=== PATIENT | female | born 1965 | race Caucasian/White ===

== ENCOUNTER 2016-09-21 20:55 | Emergency (ER) | payer BC ==
[~2016-09-21] VITALS: Ht 170.2 cm; Wt 68.0 kg
[~2016-09-21 20:55] MED LIST: ALPR.25T PO; ALPR0.5T7 PO; FAMO20TA13 PO; FEXO30TA17 PO; ONDA8TAB13 PO
--- OUTSIDE RECORDS SUMMARY | 2016-09-21 21:02 | XMS REPORT | Continuity of Care Document ---
Author Author [facility] Organization [facility] Address Unknown Phone Unavailable Care Team Providers Care Desktop Publishing Specialist Name Role Phone GREG KIM DO PCP Insurance Providers Payer Name Policy Number Subscriber Name Relationship [facility] [id number] Evelyn Peters 17 Self / Same As Patient Advance Directives Directive Response Recorded Date/Time Advance Directives No 07/10/15 5:15pm Health Care Power of Energy Audit Advisor No 07/10/15 5:15pm Organ Donor No 07/10/15 5:15pm Chief Complaint and Reason for Visit Chief Complaint General Problems/Pain Reason for Visit Urinary tract infection Pharyngitis Problems Active Problems Medical Problem Onset Date Status Chest pain Unknown Acute Pharyngitis Unknown Acute Urinary tract infection Unknown Acute Medications Current Home Medications Medication Dose Units Route Directions Days/Qty Instructions Start Date Fexofenadine Hcl 30 Mg 1 Each Oral Daily 01/11/10 Famotidine 20 Mg 1 Tab Oral Daily 30 01/11/10 Ondansetron 8 Mg 90 05/08/16 Alprazolam 0.5 Mg 112 05/08/16 Past Home Medications Medication Directions Ordered Status Alprazolam 0.25 Mg Tablet, 1 Tab Oral Bedtime 01/11/10 Discontinued Social History Social History Problem Response Recorded Date/Time Alcohol Use Denies Use 07/10/2015 5:42pm Recreational Drug Use No 07/10/2015 5:42pm Recent Foreign Travel No 05/08/2016 2:50pm Recent Infectious Disease Exposure No 05/08/2016 2:50pm Recent Hopitalizations No 05/08/2016 2:53pm Hospital Discharge Instructions No hospital discharge instructions. Plan of Care Discharge Date 05/08/16 5:07pm Disposition 01 HOME, SELF-CARE Condition at Discharge Improved Instructions/Education Provided Urinary Tract Infection in Women (ED) Prescriptions See Medication Section Referrals GREG KIM DO - Primary Care Physician Additional Instructions/Education Drink plenty of clear liquids. Cranberry juice may be used to augment treatment of urinary tract infection. Follow-up with Dr. Kim's office in 48 hours to review throat and urine cultures. Return to care if symptoms worsen. All discharge instructions reviewed with patient and/or family. Voiced understanding. Functional Status No functional status results. Allergies, Adverse Reactions, Alerts Allergen Type Severity Reaction Status Last Updated Penicillins ([id number]) Allergy Active 01/11/10 Immunizations No immunization records. Vital Signs Acute Vital Signs Vital Response Date/Time Temperature (Fahrenheit) 98.1 degrees F (97.6 - 99.5) 05/08/2016 2:50pm Temperature (Calculated Celsius) 36.58354 degrees C (36.4 - 37.5) 05/08/2016 2:50pm Temperature Source Tympanic 05/08/2016 2:50pm Pulse Rate (adult) 99 bpm (60 - 90) 05/08/2016 2:50pm Respiratory Rate 18 bpm (12 - 24) 05/08/2016 2:50pm O2 Sat by Pulse Oximetry 98 % (88 - 100) 05/08/2016 2:50pm Blood Pressure 123/92 mm Hg 05/08/2016 2:50pm Blood Pressure Mean 102 mm Hg 05/08/2016 2:50pm Pain Numeric Pain Scale 7 05/08/2016 2:50pm Height (Feet) 5 feet 05/08/2016 2:50pm Height (Inches) 7 inches 05/08/2016 2:50pm Height (Calculated Centimeters) 170.995420 cm 05/08/2016 2:50pm Weight (Pounds) 135 pounds 05/08/2016 2:50pm Weight (Calculated Kilograms) 61.571179 kilograms 05/08/2016 2:50pm Capillary Refill Capillary Refill Less Than 3 Seconds 05/08/2016 2:50pm Height 5 ft 7 in Weight 135 lb Body Mass Index 21.1 kg/m^2 Results Laboratory Results Test Name Result Units Flags Reference Collection Date/Time Result Date/ Time Comments Urine Color YELLOW 05/08/2016 2:55pm 05/08/2016 3:26pm Urine Clarity CLEAR 05/08/2016 2:55pm 05/08/2016 3:26pm Urine pH 7 5-9 05/08/2016 2:55pm 05/08/2016 3:26pm Urine Specific [place] 1.005 * 1.016-1.022 05/08/2016 2:55pm 2015 3:26pm Urine Protein NEGATIVE NEGATIVE 05/08/2016 2:55pm 05/08/2016 3:26pm Urine Glucose (UA) NEGATIVE NEGATIVE 05/08/2016 2:55pm 05/08/2016 3: 26pm Urine RBC (Auto) 4+ * NEGATIVE 05/08/2016 2:55pm 05/08/2016 3:26pm Urine Ketones NEGATIVE NEGATIVE 05/08/2016 2:55pm 05/08/2016 3:26pm Urine Nitrite NEGATIVE NEGATIVE 05/08/2016 2:55pm 05/08/2016 3:26pm Urine Bilirubin NEGATIVE NEGATIVE 05/08/2016 2:55pm 05/08/2016 3: 26pm Urine Urobilinogen NORMAL MG/DL NORMAL 05/08/2016 2:55pm 05/08/2016 3: 26pm Urine Leukocyte Esterase 3+ * NEGATIVE 05/08/2016 2:55pm 05/08/2016 3: 26pm Urine RBC 2-5 /HPF * 05/08/2016 2:55pm 05/08/2016 3:26pm Urine WBC 10-25 /HPF * 05/08/2016 2:55pm 05/08/2016 3:26pm Urine Bacteria TRACE /HPF 05/08/2016 2:55pm 05/08/2016 3:26pm Urine Squamous Epithelial Cells 2-5 /HPF 05/08/2016 2:55pm 2015 3:26pm Urine Crystals NONE /LPF 05/08/2016 2:55pm 05/08/2016 3:26pm Urine Casts NONE /LPF 05/08/2016 2:55pm 05/08/2016 3:26pm Urine Mucus NEGATIVE /LPF 05/08/2016 2:55pm 05/08/2016 3:26pm Urine Culture Indicated YES 05/08/2016 2:55pm 05/08/2016 3:26pm Group A Streptococcus Screen NEGATIVE NEGATIVE 05/08/2016 3:25pm 12/2015 3:46pm Procedures No known history of procedures. Encounters Encounter Location Arrival/Admit Date Discharge/Depart Date Attending Provider Departed Emergency Room [facility] 05/08/16 2:43pm 05/08 5:07pm QUAN TORRES MD Recent Diagnosis
[2016-09-21] MEDS ORDERED: KETOROLAC 30 MG/ML VIAL IVP STA (22:18)
[2016-09-21] MEDS ORDERED: NS IV 1000 ML 1,000 ML IV ONE (22:18)
[2016-09-21 22:31] LABS: BASOPHILS % (AUTO) 0 % (0-10); EOSINOPHILS % (AUTO) 0 % (0-10); LYMPHOCYTES # (AUTO) 0.4 X 10^3 (1.0-4.0); LYMPHOCYTES % (AUTO) 9 % (12-44); MEAN CORPUSCULAR HEMOGLOBIN 31 PG (25-34); MEAN CORPUSCULAR HGB CONC 35 G/DL (32-36); MEAN CORPUSCULAR VOLUME 89 FL (80-99); MEAN PLATELET VOLUME 9.3 FL (7.4-10.4); MONOCYTES # (AUTO) 0.5 X 10^3 (0.0-1.0); MONOCYTES % (AUTO) 10 % (0-12); NEUTROPHILS # (AUTO) 3.7 X 10^3 (1.8-7.8); NEUTROPHILS % (AUTO) 80 % (42-75); PLATELET COUNT 266 10^3/uL (130-400); RED BLOOD COUNT 4.22 10^6/uL (4.35-5.85); RED CELL DISTRIBUTION WIDTH 13.3 % (10.0-14.5); WHITE BLOOD COUNT 4.7 10^3/uL (4.3-11.0)
[2016-09-21] MEDS ORDERED: PROMETHAZINE INJ 25 MG/ML (PHENERGAN) AMP IVP STA (22:31)
[2016-09-21 23:06] LABS: ALBUMIN 4.2 G/DL (3.2-4.5); BILIRUBIN,TOTAL 0.4 MG/DL (0.1-1.0); CALCIUM 9.2 MG/DL (8.5-10.1); CREATININE SERUM 1.39 MG/DL (0.60-1.30); POTASSIUM 3.6 MMOL/L (3.6-5.0); TOTAL PROTEIN 7.4 G/DL (6.4-8.2)
--- NOTE | 2016-09-21 23:19 | ED Cough/URI ---
General Chief Complaint: Cough/Cold/Flu Symptoms Stated Complaint: FLU SYSTEMS NAUSEA DIZZY GEN PAIN Nursing Triage Note: c/o chills/bodyaches/malaise. Onset yestday. Hx of Lyme's Disease. States she does not tolerate Tylenol or ibuprofen. History of Present Illness Time seen by provider: 22:00 Initial Comments Evaluation for cough, congestion, myalgias. She has long-standing history of Lyme disease, with chronic arthralgias. Timing/Duration: yesterday Severity/Quality: moderate, dry cough Prior Episodes/Possible Cause: frequent episodes Modifying Factors: Improves With Coughing, Improves With Rest Associated Symptoms: cough, facial pain, headache, muscle aches Allergies and Home Medications Allergies Coded Allergies: Penicillins (Unverified Allergy, Unknown, 05/22/16) Home Medications Alprazolam 0.5 Mg Tablet #112 (Reported) Famotidine 20 Mg Tablet #30 1 TAB PO DAILY (Reported) Fexofenadine Hcl 30 Mg Tablet 1 EACH PO DAILY (Reported) Ketorolac Tromethamine 10 Mg Tablet #6 10 MG PO Q8H Prescribed by: ALEX BRYANT on 09/21/16 2324 Ondansetron 8 Mg Tab.rapdis #90 (Reported) Constitutional: no symptoms reported see HPI EENTM: no symptoms reported see HPI Respiratory: see HPI cough Cardiovascular: no symptoms reported see HPI Gastrointestinal: see HPI nausea (took Zofran at home.) Genitourinary: no symptoms reported see HPI Musculoskeletal: no symptoms reported see HPI Skin: see HPI Psychiatric/Neurological: No Symptoms Reported See HPI Hematologic/Lymphatic: No Symptoms Reported See HPI Immunological/Allergic: no symptoms reported see HPI All Other Systems Reviewed Negative Unless Noted: Yes Past Ndczblc-Idyxuz-Dchbue Hx Patient Social History Alcohol Use: Denies Use Recreational Drug Use: No Smoking Status: Never a Smoker Recent Foreign Travel: No Contact w/Someone Who Travel: No Recent Infectious Disease Expo: No Recent Hopitalizations: No Surgeries HX Surgeries: Yes Surgeries: Abdominal, Breast, Hysterectomy, Tubal Ligation Respiratory Hx Respiratory Disorders: Yes (ALLERGIES) Respiratory Disorders: Sleep Apnea Cardiovascular Hx Cardiac Disorders: No Neurological Hx Neurological Disorders: Yes (LYME DZ) 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 System : No Hx 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 Disorders: No Genitourinary Hx Genitourinary Disorders: Yes (chronic hematuria) Genitourinary Disorders: Renal Failure, UTI-Chronic Gastrointestinal Hx Gastrointestinal Disorders: Yes (ULCERS IN THE PAST) Musculoskeletal Hx Musculoskeletal Disorders: Yes Musculoskeletal Disorders: Fibromyalgia Endocrine Hx Endocrine Disorders: No HEENT HX ENT Disorders: No Cancer Hx Cancer: No Psychosocial Hx Psychiatric Problems: No Blood Transfusions Hx Blood Disorders: Yes (chronic Lyme's disease) Reviewed Nursing Assessment Reviewed/Agree w Nursing PMH: Yes Family Medical History Significant Family History: No Pertinent Family Hx Physical Exam Vital Signs Vital Sign - Last 12Hours 09/21/16 21:26 Temp 100.4 Pulse 110 Resp 20 B/P 120/76 Pulse Ox 98 O2 Delivery Room Air Capillary Refill : Less Than 3 Seconds General Appearance: WD/WN no apparent distress Eyes: Bilateral Eye EOMI, Bilateral Eye Normal Inspection, Bilateral Eye PERRL HEENT: PERRL/EOMI normal ENT inspection TMs normal pharynx normal Neck: full range of motion supple normal inspection Respiratory: chest non-tender lungs clear normal breath sounds Cardiovascular: normal peripheral pulses regular rate, rhythm no murmur Gastrointestinal: normal bowel sounds non tender softNo distended, No guarding , No rebound Extremities: normal range of motion normal inspection no pedal edema no calf tenderness normal capillary refill Neurologic/Psychiatric: no motor/sensory deficits alert normal mood/affect oriented x 3 Skin: normal color warm/dry Lymphatic: no adenopathy Progress/Results/Core Measures Results/Orders Lab Results Laboratory Tests Test 09/21/16 10:25 09/21/16 21:20 Range/Units Alanine Aminotransferase (ALT/SGPT) 16 0-55 U/L Albumin 4.2 3.2-4.5 G/DL Alkaline Phosphatase 77 40-136 U/L Anion Gap 11 5-14 MMOL/L Aspartate Amino Transf (AST/SGOT) 21 5-34 U/L BUN/Creatinine Ratio 6 Basophils # (Auto) 0.0 0.0-0.1 10^3/uL Basophils (%) (Auto) 0 0-10 % Blood Urea Nitrogen 8 7-18 MG/DL Calcium Level 9.2 8.5-10.1 MG/DL Carbon Dioxide Level 21 21-32 MMOL/L Chloride Level 98 98-107 MMOL/L Creatinine 1.39 H 0.60-1.30 MG/DL Eosinophils # (Auto) 0.0 0.0-0.3 10^3/uL Eosinophils (%) (Auto) 0 0-10 % Estimat Glomerular Filtration Rate 40 Glucose Level 116 H 70-105 MG/DL Hematocrit 38 35-52 % Hemoglobin 13.0 11.5-16.0 G/DL Lymphocytes # (Auto) 0.4 L 1.0-4.0 X 10^3 Lymphocytes (%) (Auto) 9 L 12-44 % Mean Corpuscular Hemoglobin 31 25-34 PG Mean Corpuscular Hemoglobin Concent 35 32-36 G/DL Mean Corpuscular Volume 89 80-99 FL Mean Platelet Volume 9.3 7.4-10.4 FL Monocytes # (Auto) 0.5 0.0-1.0 X 10^3 Monocytes (%) (Auto) 10 0-12 % Neutrophils # (Auto) 3.7 1.8-7.8 X 10^3 Neutrophils (%) (Auto) 80 H 42-75 % Platelet Count 266 130-400 10^3/uL Potassium Level 3.6 3.6-5.0 MMOL/L Red Blood Count 4.22 L 4.35-5.85 10^6/uL Red Cell Distribution Width 13.3 10.0-14.5 % Sodium Level 130 L 135-145 MMOL/L Total Bilirubin 0.4 0.1-1.0 MG/DL Total Protein 7.4 6.4-8.2 G/DL White Blood Count 4.7 4.3-11.0 10^3/uL Group A Streptococcus Screen NEGATIVE NEGATIVE Micro Results Microbiology 09/21/16 Influenza Types A,B Antigen (DAREN) - Final, Complete My Orders Orders-ALEX BRYANT Saline Lock/Iv-Start (09/21/16 22:18) Ns Iv 1000 Ml (Sodium Chloride 0.9%) (09/21/16 22:18) Cbc With Automated Diff (09/21/16 22:18) Comprehensive Metabolic Panel (09/21/16 22:18) Ketorolac Injection (Toradol Injection) (09/21/16 22:18) Promethazine Injection (Phenergan Injec (09/21/16 22:31) Medications Given in ED Current Medications Medications Dose Ordered Sig/Nickie Route Start Time Stop Time Status Last Admin Dose Admin Sodium Chloride 1,000 ml @ 0 mls/hr Q0M ONCE IV 09/21/16 22:18 09/21/16 22:21 DC 09/21/16 22:33 0 MLS/HR Vital Signs/I&O Vital Sign - Last 12Hours 09/21/16 09/21/16 21:26 22:32 Temp 100.4 100.4 Pulse 110 Resp 20 B/P 120/76 Pulse Ox 98 O2 Delivery Room Air Blood Pressure Mean: 91 Progress Note : Time: 22:00 Progress Note Initial evaluation completed, influenza A and B negative, strep A negative. 2215 recommended additional labs, CBC and CMP. Normal saline 1 L IV and Toradol 30 mg IV. 2230 patient reporting some nausea. Phenergan 12.5 mg IV. 2315 patient reports improvement in symptoms. 400 mls left in her IV to infuse. Temperature 99.0. Departure Impression Impression: Primary Impression: Viral upper respiratory infection Additional Impression: Nausea Disposition: HOME, SELF-CARE Condition: Stable Departure-Patient Inst. Decision time for Depature: 23:00 Referrals: GREG PATRICIA DO (PCP/Family) Primary Care Physician Patient Instructions: Cough, Adult (DC), Viral Upper Respiratory Infection, Adult (DC) Add. Discharge Instructions: All discharge instructions reviewed with patient and/or family. Voiced understanding. Return to emergency room for fevers, difficulty breathing, vomiting or change in symptoms. Increase fluid intake. Scripts Ketorolac Tromethamine 10 Mg [id number] Mg PO Q8H #6 TAB Ref 0 Prov:ALEX BRYANT 09/21/16 ALEX BRYANT Sep 21, 2016 23:19
[2016-09-21] MEDS ORDERED: KETO10TA PO (23:24)
[2016-09-21 23:54] VITALS: BP 118/72
== END 2016-09-21 23:54 | disposition home or self-care (01) ==
LOC: EDUNIT# 20:55 → ER 20:59
DX: J06.9 Acute upper respiratory infection, unspecified (principal); R11.0 Nausea; A69.20 Lyme disease, unspecified
CPT/HCPCS: 36415; 80053; 85025; 87430; 87804; 96361; 96374; 96375

== ENCOUNTER 2016-09-25 17:20 | Observation (INO) | payer BC ==
[~2016-09-25] VITALS: Ht 170.2 cm; Wt 66.3 kg
[~2016-09-25 17:20] MED LIST changes: +KETO10TA PO
[2016-09-25] MEDS ORDERED: HYDROcodone/APAP 5 MG/325 MG (LORTAB) TAB PO PRN (17:30)
[2016-09-25] MEDS ORDERED: ALPRAZolam 0.25 MG (XANAX) TAB PO PRN (17:30)
[2016-09-25] MEDS ORDERED: ENOXAPARIN 40 MG/0.4 ML (LOVENOX) SYR SC SCH (17:30)
[2016-09-25] MEDS ORDERED: fentaNYL INJECTION 100 MCG/2 ML AMP IVP PRN ×2 (17:30)
[2016-09-25] MEDS ORDERED: ONDANSETRON 4 MG/2 ML (SDV) Z0FRAN IVP PRN (17:30)
[2016-09-25] MEDS ORDERED: IBUPROFEN TABLET 200 MG TAB PO PRN (17:30)
[2016-09-25] MEDS ORDERED: ACETAMINOPHEN 500 MG TAB (TYLENOL) PO PRN (17:30)
[2016-09-25 17:50] VITALS: BP 108/71
[2016-09-25] MEDS ORDERED: NS IV 1000 ML 1,000 ML ONE (18:21)
--- OUTSIDE RECORDS SUMMARY | 2016-09-25 18:23 | XMS REPORT | Continuity of Care Document ---
Author Author [facility] Organization [facility] Address Unknown Phone Unavailable Care Team Providers Care Slubber Runner Name Role Phone GREG PATRICIA DO PCP Insurance Providers Payer Name Policy Number Subscriber Name Relationship [facility] [id number] GenaEvelyn Johns 17 Self / Same As Patient Advance Directives Directive Response Recorded Date/Time Advance Directives No 09/21/16 9:31pm Health Care Power of Consulting Utility Forester No 09/21/16 9:31pm Organ Donor No 09/21/16 9:31pm Resuscitation Status Full Code 09/21/16 9:31pm Chief Complaint and Reason for Visit Chief Complaint Cough/Cold/Flu Symptoms Reason for Visit [id number] Nausea Problems Active Problems Medical Problem Onset Date Status Chest pain Unknown Acute Nausea Unknown Acute Pharyngitis Unknown Acute Urinary tract infection Unknown Acute Viral upper respiratory infection Unknown Acute Medications Current Home Medications Medication Dose Units Route Directions Days/Qty Instructions Start Date Fexofenadine Hcl 30 Mg 1 Each Oral Daily 01/11/10 Famotidine 20 Mg 1 Tab Oral Daily 30 01/11/10 Ondansetron 8 Mg 90 05/08/16 Alprazolam 0.5 Mg 112 05/08/16 Ketorolac Tromethamine 10 Mg 10 Mg Oral Every 8HRS 6 09/21/16 Past Home Medications Medication Directions Ordered Status Alprazolam 0.25 Mg Tablet, 1 Tab Oral Bedtime 01/11/10 Discontinued Social History Social History Problem Response Recorded Date/Time Alcohol Use Denies Use 07/10/2015 5:42pm Recreational Drug Use No 07/10/2015 5:42pm Recent Foreign Travel No 09/21/2016 9:26pm Recent Infectious Disease Exposure No 09/21/2016 9:26pm Smoking Status Never a Smoker 09/21/2016 9:31pm Recent Hopitalizations No 09/21/2016 9:31pm Query Response Start Date Stop Date Smoking Status Never a Smoker Hospital Discharge Instructions No hospital discharge instructions. Plan of Care Discharge Date 09/21/16 11:54pm Disposition 01 HOME, SELF-CARE Condition at Discharge Stable Instructions/Education Provided Viral Upper Respiratory Infection, Adult (DC) Cough, Adult (DC) Prescriptions See Medication Section Referrals GREG PATRICIA DO - Primary Care Physician Additional Instructions/Education All discharge instructions reviewed with patient and/or family. Voiced understanding. Return to emergency room for fevers, difficulty breathing, vomiting or change in symptoms. Increase fluid intake. Functional Status No functional status results. Allergies, Adverse Reactions, Alerts Allergen Type Severity Reaction Status Last Updated Penicillins ([id number]) Allergy Unknown Active 05/22/16 Immunizations No immunization records. Vital Signs Acute Vital Signs Vital Response Date/Time Temperature (Fahrenheit) 100.4 degrees F (97.6 - 99.5) 09/21/2016 10:32pm Temperature (Calculated Celsius) 38.99745 degrees C (36.4 - 37.5) 09/21/2016 10:32pm Temperature Source Temporal 09/21/2016 10:32pm Pulse Rate (adult) 110 bpm (60 - 90) 09/21/2016 9:26pm Respiratory Rate 20 bpm (12 - 24) 09/21/2016 9:26pm O2 Sat by Pulse Oximetry 98 % (88 - 100) 09/21/2016 9:26pm Blood Pressure 120/76 mm Hg 09/21/2016 9:26pm Blood Pressure Mean 91 mm Hg 09/21/2016 9:26pm Pain Numeric Pain Scale 7 09/21/2016 10:32pm Height (Feet) 5 feet 09/21/2016 9:26pm Height (Inches) 7 inches 09/21/2016 9:26pm Height (Calculated Centimeters) 170.132899 cm 09/21/2016 9:26pm Weight (Pounds) 150 pounds 09/21/2016 9:26pm Weight (Calculated Kilograms) 68.717930 kilograms 09/21/2016 9:26pm Capillary Refill Capillary Refill Less Than 3 Seconds 09/21/2016 9:26pm Height 5 ft 7 in Weight 150 lb Body Mass Index 23.5 kg/m^2 Results Laboratory Results Test Name Result Units Flags Reference Collection Date/Time Result Date/ Time Comments White Blood Count 4.7 10^3/uL 4.3-11.0 09/21/2016 10:09/21/2016 10 :34pm Red Blood Count 4.22 10^6/uL L 4.35-5.85 09/21/2016 10:09/21/2016 10 :34pm Hemoglobin 13.0 G/DL 11.5-16.0 09/21/2016 10:09/21/2016 10:34pm Hematocrit 38 % 35-52 09/21/2016 10:09/21/2016 10:34pm Mean Corpuscular Volume 89 FL 80-99 09/21/2016 10:09/21/2016 10: 34pm Mean Corpuscular Hemoglobin 31 PG 25-34 09/21/2016 10:09/21/2016 10:34pm Mean Corpuscular Hemoglobin Concent 35 G/DL 32-36 09/21/2016 10: 10:34pm Red Cell Distribution Width 13.3 % 10.0-14.5 09/21/2016 10:2016 10:34pm Platelet Count 266 10^3/uL 130-400 09/21/2016 10:09/21/2016 10: 34pm Mean Platelet Volume 9.3 FL 7.4-10.4 09/21/2016 10:09/21/2016 10: 34pm Neutrophils (%) (Auto) 80 % H 42-75 09/21/2016 10:09/21/2016 10: 34pm Lymphocytes (%) (Auto) 9 % L 12-44 09/21/2016 10:09/21/2016 10:34pm Monocytes (%) (Auto) 10 % 0-12 09/21/2016 10:09/21/2016 10:34pm Eosinophils (%) (Auto) 0 % 0-10 09/21/2016 10:09/21/2016 10:34pm Basophils (%) (Auto) 0 % 0-10 09/21/2016 10:09/21/2016 10:34pm Neutrophils # (Auto) 3.7 X 10^3 1.8-7.8 09/21/2016 10:09/21/2016 10:34pm Lymphocytes # (Auto) 0.4 X 10^3 L 1.0-4.0 09/21/2016 10:09/21/2016 10:34pm Monocytes # (Auto) 0.5 X 10^3 0.0-1.0 09/21/2016 10:09/21/2016 10: 34pm Eosinophils # (Auto) 0.0 10^3/uL 0.0-0.3 09/21/2016 10:09/21/2016 10:34pm Basophils # (Auto) 0.0 10^3/uL 0.0-0.1 09/21/2016 10:09/21/2016 10 :34pm Sodium Level 130 MMOL/L L 135-145 09/21/2016 10:09/21/2016 11:07pm Potassium Level 3.6 MMOL/L 3.6-5.0 09/21/2016 10:09/21/2016 11: 07pm Chloride Level 98 MMOL/L 98-107 09/21/2016 10:09/21/2016 11:07pm Carbon Dioxide Level 21 MMOL/L 21-32 09/21/2016 10:09/21/2016 11: 07pm Anion Gap 11 MMOL/L 5-14 09/21/2016 10:09/21/2016 11:07pm Blood Urea Nitrogen 8 MG/DL 7-18 09/21/2016 10:09/21/2016 11:07pm Creatinine 1.39 MG/DL H 0.60-1.30 09/21/2016 10:09/21/2016 11:07pm BUN/Creatinine Ratio 6 09/21/2016 10:09/21/2016 11:07pm Estimat Glomerular Filtration Rate 40 09/21/2016 10:2016 11:07pm GFR INTERPRETIVE DATA UNITS FOR ESTIMATED GFR (eGFR): mL/min/1.73 M2 REFERENCE RANGE FOR ESTIMATED GFR (eGFR) eGFR NORMAL eGFR >60 MODERATELY DECREASED eGFR 30-59 SEVERLY DECREASED eGFR 15-29 KIDNEY FAILURE <15 (OR DIALYSIS) Glucose Level 116 MG/DL H 70-105 09/21/2016 10:09/21/2016 11:07pm Calcium Level 9.2 MG/DL 8.5-10.1 09/21/2016 10:09/21/2016 11:07pm Total Bilirubin 0.4 MG/DL 0.1-1.0 09/21/2016 10:09/21/2016 11: 07pm Alkaline Phosphatase 77 U/L 40-136 09/21/2016 10:09/21/2016 11: 07pm Aspartate Amino Transf (AST/SGOT) 21 U/L 5-34 09/21/2016 10:2016 11:07pm Alanine Aminotransferase (ALT/SGPT) 16 U/L 0-55 09/21/2016 10: 11:07pm Total Protein 7.4 G/DL 6.4-8.2 09/21/2016 10:09/21/2016 11:07pm Albumin 4.2 G/DL 3.2-4.5 09/21/2016 10:09/21/2016 11:07pm Group A Streptococcus Screen NEGATIVE NEGATIVE 09/21/2016 9:20pm 9:39pm Procedures No known history of procedures. Encounters Encounter Location Arrival/Admit Date Discharge/Depart Date Attending Provider Departed Emergency Room [facility] 09/21/16 8:59pm 09/21 11:54pm ALEX BRYANT Recent Diagnosis
[2016-09-25] MEDS ORDERED: CATHETER FLUSH 10 ML SYR IV PRN (18:30)
[2016-09-25] MEDS: NS IV 1000 ML 1,000 ML IV SCH (18:38)
[2016-09-25 19:28] LABS: BASOPHILS % (AUTO) 0 % (0-10); EOSINOPHILS % (AUTO) 0 % (0-10); LYMPHOCYTES # (AUTO) 1.9 X 10^3 (1.0-4.0); LYMPHOCYTES % (AUTO) 38 % (12-44); MEAN CORPUSCULAR HEMOGLOBIN 31 PG (25-34); MEAN CORPUSCULAR HGB CONC 35 G/DL (32-36); MEAN CORPUSCULAR VOLUME 90 FL (80-99); MEAN PLATELET VOLUME 9.6 FL (7.4-10.4); MONOCYTES # (AUTO) 0.7 X 10^3 (0.0-1.0); MONOCYTES % (AUTO) 13 % (0-12); NEUTROPHILS # (AUTO) 2.4 X 10^3 (1.8-7.8); NEUTROPHILS % (AUTO) 48 % (42-75); PLATELET COUNT 214 10^3/uL (130-400); RED BLOOD COUNT 3.87 10^6/uL (4.35-5.85); RED CELL DISTRIBUTION WIDTH 13.3 % (10.0-14.5)
--- NOTE | 2016-09-25 19:43 | Diagnostic Imaging Report ---
INDICATION: Cough. Fever. COMPARISON: 05/08/2016 FINDINGS: Frontal and lateral views of the chest demonstrate normal heart size and pulmonary vascularity. The lungs are clear. There are no signs of infiltrate, pleural effusions or pneumothoraces. The visualized osseous structures show no acute abnormalities. IMPRESSION: 1. No acute process. No signs of infiltrates, effusions or pneumothoraces. Dictated by: Dictated on workstation # [id number]
[2016-09-25 19:48] LABS: ALBUMIN 3.6 G/DL (3.2-4.5); BILIRUBIN,TOTAL 0.5 MG/DL (0.1-1.0); CALCIUM 8.3 MG/DL (8.5-10.1); CREATININE SERUM 1.29 MG/DL (0.60-1.30); POTASSIUM 3.2 MMOL/L (3.6-5.0); TOTAL PROTEIN 6.8 G/DL (6.4-8.2)
[2016-09-25 20:00] VITALS: BP 115/73
[2016-09-25] MEDS: OSELTAMIVIR 75 MG (TAMIFLU) BOX OF 10 PO SCH (20:12)
[2016-09-26] VITALS: BP 100/60
[2016-09-26 01:31] LABS: BILIRUBIN,URINE NEGATIVE (NEGATIVE); KETONES,URINE NEGATIVE (NEGATIVE); NITRITE,URINE NEGATIVE (NEGATIVE); PH,URINE 7 (5-9); PROTEIN,URINE NEGATIVE (NEGATIVE)
[2016-09-26 01:32] LABS: LEUKOCYTE ESTERASE ,URINE NEGATIVE (NEGATIVE); SQUAMOUS EPITHELIAL CELL,UR 0-2 /HPF; UROBILINOGEN,URINE NORMAL (NORMAL)
[2016-09-26] MEDS: NS IV 1000 ML 1,000 ML IV SCH (02:31)
[2016-09-26 04:00] VITALS: BP 96/62
[2016-09-26 05:13] LABS: BASOPHILS % (AUTO) 1 % (0-10); EOSINOPHILS # (AUTO) 0.1 10^3/uL (0.0-0.3); EOSINOPHILS % (AUTO) 1 % (0-10); LYMPHOCYTES # (AUTO) 1.7 X 10^3 (1.0-4.0); LYMPHOCYTES % (AUTO) 49 % (12-44); MEAN CORPUSCULAR HEMOGLOBIN 30 PG (25-34); MEAN CORPUSCULAR HGB CONC 34 G/DL (32-36); MEAN CORPUSCULAR VOLUME 91 FL (80-99); MEAN PLATELET VOLUME 9.5 FL (7.4-10.4); MONOCYTES # (AUTO) 0.4 X 10^3 (0.0-1.0); MONOCYTES % (AUTO) 12 % (0-12); NEUTROPHILS # (AUTO) 1.3 X 10^3 (1.8-7.8); NEUTROPHILS % (AUTO) 37 % (42-75); PLATELET COUNT 189 10^3/uL (130-400); RED BLOOD COUNT 3.68 10^6/uL (4.35-5.85); RED CELL DISTRIBUTION WIDTH 13.6 % (10.0-14.5); WHITE BLOOD COUNT 3.6 10^3/uL (4.3-11.0)
[2016-09-26 05:36] LABS: ALBUMIN 3.2 G/DL (3.2-4.5); BILIRUBIN,TOTAL 0.4 MG/DL (0.1-1.0); CREATININE SERUM 0.99 MG/DL (0.60-1.30); POTASSIUM 3.5 MMOL/L (3.6-5.0)
[2016-09-26] MEDS ORDERED: NS IV SCH ×2 (08:59)
[2016-09-26] MEDS ORDERED: KCL IV SCH ×2 (08:59)
[2016-09-26] MEDS ORDERED: KCL 20 MEQ TAB (K-DUR) PO NR (09:00)
[2016-09-26] MEDS ORDERED: ONDANSETRON 8 MG (ZOFRAN) ORAL DISSOLVE TAB PO PRN (09:00)
[2016-09-26] MEDS ORDERED: ALPRAZolam 0.5 MG (XANAX) TAB PO PRN (09:00)
[2016-09-26] MEDS: OSELTAMIVIR 75 MG (TAMIFLU) BOX OF 10 PO SCH (09:00)
[2016-09-26] MEDS ORDERED: FAMOTIDINE 20 MG (PEPCID) TABLET PO SCH (09:00)
[2016-09-26] MEDS ORDERED: LORATADINE (CLARITIN) 10 MG TAB PO SCH (09:06)
--- NOTE | 2016-09-26 11:31 | Short Stay Summary-Hospitalist ---
HPI History of Present Illness: HPI/Chief Complaint CC: Fever with lethargy HPI: This is a 51yoWF clinic pt of Dr. Kim's with hx of red cliff disease and chronic fatigue syndrome that presents after ER visit this past weekend given IVF and Diagnosed with viral infection since influenza was negative but continued to worsen with continued fever and dehydration. She was placed in observation for IVF and supportive care and workup for fever. Chart Review: Pt has low grade fever of 100 but WBC was 5 on admission, 3.6 today consistent with viral illness. Hgb 11.2, K+ 3.5 and normal Creat levels and liver enzymes. Will give K+ 20 meq in addition adding 10 meq in IV fluid bag. Reconciled all home meds and continued. 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 Patient Interview: Dr. Moran informs pt that she is negative for influenza A, and will no longer need to take Tamiflu, but was still dehydrated and had some form of viral illness. Pt states that she is unable to receive treatment for Lyme disease because she has severe hypersensitivities. Pt states that she is unable to take oral meds, wash her hair, wear lipstick, and use lotions. Pt states that these hypersensitivities appeared after her Hyst. Pt receives assistance from her sister. Pt states that she does not need any new meds. Pt requests Toradol IV for pain prior to DC. Scribed by Clarence Cantu under the direct supervision of Dr. Moran. Source: patient, RN/MD Exam Limitations: no limitations Date Seen 09/26/16 Attending Physician Daphney Moran DO PCP Rayray Kim DO Referring Physician Date of Admission Sep 25, 2016 at 18:19 Home Medications & Allergies Home Medications Reviewed patient Home Medication Reconciliation Form Allergies Coded Allergies: Penicillins (Verified Allergy, Unknown, 09/25/16) Past Xvgnxqh-Nckjov-Xvgtvh Hx Patient Social History Alcohol Use: Denies Use Recreational Drug Use: No Smoking Status: Never a Smoker Physical Abuse Screen: No Sexual Abuse: No Recent Foreign Travel: No Contact w/other who traveled: No Recent Hopitalizations: No Recent Infectious Disease Expo: No Seasonal Allergies Seasonal Allergies: Yes Surgeries HX Surgeries: Yes Surgeries: Abdominal, Breast, Hysterectomy, Tubal Ligation Respiratory Hx Respiratory Disorders: Yes (ALLERGIES) Cardiovascular Hx Cardiovascular Disorders: No Neurological Hx Neurological Disorders: Yes (LYME DZ) 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 System Hx 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 Disorders: No Sexually Transmitted Disease: No HIV/AIDS: No Female 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 Disorders: Denies Genitourinary Hx Genitourinary Disorders: Yes (chronic hematuria) Genitourinary Disorders: Renal Failure Gastrointestinal Hx Gastrointestinal Disorders: Yes (ULCERS IN THE PAST) Gastrointestinal Disorders: Gastroesophageal Reflux, Chronic Constipation, Irritable Bowel Musculoskeletal Hx Musculoskeletal Disorders: Yes Musculoskeletal Disorders: Arthritis, Fibromyalgia Endocrine Hx Endocrine Disorders: No HEENT HX ENT Disorders: No Cancer Hx Cancer: No Psychosocial Hx Psychiatric Problems: No Behavioral Health Disorders: Anxiety, Depression Blood Transfusions Hx Blood Disorders: Yes (chronic Lyme's disease) Family Medical History Significant Family History: No Pertinent Family Hx Family Hx: Alcoholism G8 BROTHER G8 SISTER Arthritis 19 MOTHER FH: Parkinson's disease 19 FATHER FH: breast cancer 19 FATHER FH: leukemia G8 BROTHER G8 SISTER Headache disorder G8 SISTER G8 SISTER LEUK Myocardial infarction 19 MOTHER PARKINSON 19 FATHER Parkinson's disease 19 FATHER TIA 19 FATHER TIAs No Family History of: AIDS Abdominal aortic aneurysm [place]'s disease Alzheimer's disease Asthma Cardiovascular disease Completed stroke Coronary thrombosis Diabetes mellitus Drug abuse Hypertension Kidney disease Respiratory disorder Seizure disorder Severe allergy Thyroid disease Tuberculosis Review of Systems Constitutional: see HPI dizziness fever malaise weakness EENTM: no symptoms reported Respiratory: cough Cardiovascular: no symptoms reported Gastrointestinal: no symptoms reported Genitourinary: decreased output Musculoskeletal: no symptoms reported Skin: no symptoms reported Psychiatric/Neurological: No Symptoms Reported All Other Systems Reviewed Negative Unless Noted: Yes Physical Exam Physical Exam Vital Signs Vital Sign - Last 12Hours 09/25/16 17:50 Temp 99.1 Pulse 87 Resp 18 B/P 108/71 Pulse Ox 98 O2 Delivery Room Air Capillary Refill : General Appearance: No Apparent Distress WD/WN Chronically ill Eyes: Bilateral Eye Normal Inspection, Bilateral Eye PERRL HEENT: PERRL/EOMI Normal ENT Inspection Pharynx Normal Neck: Full Range of Motion Normal Inspection Non Tender Supple Carotid Bruit Respiratory: Chest Non Tender Lungs Clear Normal Breath Sounds No Accessory Muscle Use No Respiratory Distress Cardiovascular: Regular Rate, Rhythm No Edema No Gallop No JVD No Murmur Normal Peripheral Pulses Gastrointestinal: Normal Bowel Sounds No Organomegaly No Pulsatile Mass Non Tender Soft Back: Normal Inspection No CVA Tenderness No Vertebral Tenderness Extremity: Normal Capillary Refill Normal Inspection Normal Range of Motion Non Tender No Calf Tenderness No Pedal Edema Neurologic/Psychiatric: Alert Oriented x3 No Motor/Sensory Deficits Normal Mood/Affect Skin: Normal Color Warm/Dry Lymphatic: No Adenopathy Results Results/Procedures Lab Laboratory Tests 09/25/16 19:17 09/26/16 05:03 Short Stay Diagnosis Discharge Diagnosis-Short Stay Admission Diagnosis Assessment: Viral illness - influenza negative Fever Hypokalemia Dehydration [place] disease Chronic fatigue syndrome Final Discharge Diagnosis Assessment: Viral illness - influenza negative Fever Hypokalemia Dehydration [place] disease Chronic fatigue syndrome Conclusion Plan Plan: K+ 20 meq in addition adding 10 meq in IV fluid bag Reconciled all home meds Plan for DC today Toradol IV for pain one dose prior to DC Clinical Quality Measures DVT/VTE Risk/Contraindication: Risk Factor Score Per Nursin RFS Level Per Nursing on Admit: 2=Moderate DAPHNEY MORAN DO Sep 26, 2016 11:31
--- NOTE | 2016-09-26 11:50 | Discharge Instructions ---
Discharge Instructions Discharge Medications New, Converted or Re-Newed RX: Other Continued Medications: Alprazolam (Alprazolam) 0.5 Mg Tablet 0.5 MG PO EVERY 4-6 HOURS PRN ANXIETY Famotidine (Pepcid) 20 Mg Tablet 20 MG PO DAILY TAB Fexofenadine Hcl (Kaitlynn) 30 Mg Tablet 30 MG PO DAILY Ondansetron (Ondansetron Odt) 8 Mg Tab.rapdis 8 MG PO Q8H PRN NAUSEA/VOMITING Patient Instructions Goal/Follow Up Appt: follow-up with Dr. Kim for chronic Lyme disease and chronic fatigue syndrome treatment Activity & Diet Discharge Diet: No Restrictions Activity as Tolerated: Yes KISHAN MENDOZA DO Sep 26, 2016 11:50
[2016-09-26 12:00] VITALS: BP 98/63
[2016-09-26] MEDS ORDERED: KETOROLAC 30 MG/ML VIAL IVP NR (13:00)
== END 2016-09-26 11:48 | disposition home or self-care (01) ==
LOC: 4TH 17:40 → UNDOADMOB 18:19 → UNDODISOB 09-26 14:25
PROVIDERS: ADMIT Internal Medicine; ATTEND Internal Medicine
DX: E86.0 Dehydration (principal); B34.9 Viral infection, unspecified; R50.9 Fever, unspecified; E87.6 Hypokalemia; A69.20 Lyme disease, unspecified; R53.82 Chronic fatigue, unspecified
CPT/HCPCS: 36415; 71020; 80053; 81000; 83605; 85025; 87040; 87804; 94760; 99211; G0378

== ENCOUNTER 2017-01-13 14:46 | Emergency (ER) | payer BC ==
[~2017-01-13] VITALS: Ht 170.2 cm; Wt 65.8 kg
[2017-01-13] MEDS ORDERED: ONDANSETRON 4 MG/2 ML (SDV) Z0FRAN IVP ONE (15:00)
[2017-01-13] MEDS ORDERED: KETOROLAC 30 MG/ML VIAL IVP ONE (15:00)
[2017-01-13] MEDS ORDERED: LORazepam INJ 2 MG/ML (ATIVAN) VIAL IVP ONE (15:00)
[2017-01-13] MEDS ORDERED: NS IV 1000 ML 1,000 ML IV SCH (15:00)
--- NOTE | 2017-01-13 15:01 | ED General ---
General Chief Complaint: General Problems/Pain Stated Complaint: HEAD/NECK PAIN Source of Information: Patient Exam Limitations: No Limitations History of Present Illness Time Seen by Provider: 14:59 Initial Comments To ER with severe head and neck pain for the past few days that she states is typical of a flareup of her Lyme disease and fibromyalgia. She states usually she has to come to the emergency room to get IV Zofran and IV Xanax but they have to be put in the bag of fluids because if you push them she'll have a "neurological reaction". She denies fevers or chills. She states that she has a "neurological reaction" to too many medications to list but she states that she can have saline, Zofran and Xanax. Timing/Duration: 1-2 Days Severity: Moderate Associated Systoms: Headaches, Nausea/Vomiting (nausea but no vomiting. ) Allergies and Home Medications Allergies Coded Allergies: Penicillins (Verified Allergy, Unknown, 09/25/16) Home Medications Alprazolam 0.5 Mg Tablet, 0.5 MG PO EVERY 4-6 HOURS PRN for ANXIETY, (Reported) Famotidine 20 Mg Tablet, 20 MG PO DAILY, (Reported) Fexofenadine Hcl 30 Mg Tablet, 30 MG PO DAILY, (Reported) Ondansetron 8 Mg Tab.rapdis, 8 MG PO Q8H PRN for NAUSEA/VOMITING, (Reported) Constitutional: see HPI EENTM: see HPI Respiratory: no symptoms reported Cardiovascular: no symptoms reported Genitourinary: no symptoms reported Musculoskeletal: no symptoms reported Skin: no symptoms reported Psychiatric/Neurological: See HPI Past Ixgtlov-Mdwgsg-Htmtmo Hx Patient Social History Recent Foreign Travel: No Contact w/Someone Who Travel: No Recent Hopitalizations: No Immunizations Up To Date PED Vaccines UTD: No Seasonal Allergies Seasonal Allergies: Yes Surgeries HX Surgeries: Yes Surgeries: Abdominal, Breast, Hysterectomy, Tubal Ligation Respiratory Hx Respiratory Disorders: Yes (ALLERGIES) Respiratory Disorders: Sleep Apnea Cardiovascular Hx Cardiac Disorders: No Neurological Hx Neurological Disorders: Yes (LYME DZ) 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 System Hx 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 Disorders: No Sexually Transmitted Disease: No HIV/AIDS: No Female 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 Disorders: Denies Genitourinary Hx Genitourinary Disorders: Yes (chronic hematuria) Genitourinary Disorders: Renal Failure Gastrointestinal Hx Gastrointestinal Disorders: Yes (ULCERS IN THE PAST) Gastrointestinal Disorders: Gastroesophageal Reflux, Chronic Constipation, Irritable Bowel Musculoskeletal Hx Musculoskeletal Disorders: Yes Musculoskeletal Disorders: Arthritis, Fibromyalgia Endocrine Hx Endocrine Disorders: No HEENT HX ENT Disorders: No Cancer Hx Cancer: No Psychosocial Hx Psychiatric Problems: No Behavioral Health Disorders: Anxiety, Depression Blood Transfusions Hx Blood Disorders: Yes (chronic Lyme's disease) Family Medical History Significant Family History: No Pertinent Family Hx Family Medial History: Alcoholism G8 BROTHER G8 SISTER Arthritis 19 MOTHER FH: Parkinson's disease 19 FATHER FH: breast cancer 19 FATHER FH: leukemia G8 BROTHER G8 SISTER Headache disorder G8 SISTER G8 SISTER LEUK Myocardial infarction 19 MOTHER PARKINSON 19 FATHER Parkinson's disease 19 FATHER TIA 19 FATHER TIAs No Family History of: AIDS Abdominal aortic aneurysm Jamal's disease Alzheimer's disease Asthma Cardiovascular disease Completed stroke Coronary thrombosis Diabetes mellitus Drug abuse Hypertension Kidney disease Respiratory disorder Seizure disorder Severe allergy Thyroid disease Tuberculosis Physical Exam Vital Signs Vital Sign - Last 12Hours 01/13/17 14:56 Temp 98.3 Pulse 98 Resp 20 B/P (MAP) 139/119 Pulse Ox 99 O2 Delivery Room Air Capillary Refill : General Appearance: No Apparent Distress, WD/WN, Other (patient wears her dark sunglasses into the room, breathes heavily and appears quite anxious.) Eyes: Bilateral Eye EOMI, Bilateral Eye Normal Inspection, Bilateral Eye PERRL HEENT: PERRL/EOMI, TMs Normal Neck: Full Range of Motion, Normal Inspection Respiratory: No Accessory Muscle Use, No Respiratory Distress Gastrointestinal: Normal Bowel Sounds, Non Tender, Soft Extremity: Normal Capillary Refill, Normal Inspection Neurologic/Psychiatric: Alert, Oriented x3, No Motor/Sensory Deficits Skin: Normal Color, Warm/Dry Progress/Results/Core Measures Results/Orders Lab Results Laboratory Tests Test 01/13/17 15:10 01/13/17 15:13 Range/Units White Blood Count 6.1 4.3-11.0 10^3/uL Red Blood Count 4.17 L 4.35-5.85 10^6/uL Hemoglobin 12.7 11.5-16.0 G/DL Hematocrit 38 35-52 % Mean Corpuscular Volume 91 80-99 FL Mean Corpuscular Hemoglobin 31 25-34 PG Mean Corpuscular Hemoglobin Concent 33 32-36 G/DL Red Cell Distribution Width 13.4 10.0-14.5 % Platelet Count 282 130-400 10^3/uL Mean Platelet Volume 9.3 7.4-10.4 FL Neutrophils (%) (Auto) 45 42-75 % Lymphocytes (%) (Auto) 39 12-44 % Monocytes (%) (Auto) 12 0-12 % Eosinophils (%) (Auto) 3 0-10 % Basophils (%) (Auto) 1 0-10 % Neutrophils # (Auto) 2.8 1.8-7.8 X 10^3 Lymphocytes # (Auto) 2.4 1.0-4.0 X 10^3 Monocytes # (Auto) 0.7 0.0-1.0 X 10^3 Eosinophils # (Auto) 0.2 0.0-0.3 10^3/uL Basophils # (Auto) 0.1 0.0-0.1 10^3/uL Sodium Level 134 L 135-145 MMOL/L Potassium Level 3.4 L 3.6-5.0 MMOL/L Chloride Level 99 98-107 MMOL/L Carbon Dioxide Level 25 21-32 MMOL/L Anion Gap 10 5-14 MMOL/L Blood Urea Nitrogen 7 7-18 MG/DL Creatinine 1.19 0.60-1.30 MG/DL Estimat Glomerular Filtration Rate 48 BUN/Creatinine Ratio 6 Glucose Level 95 70-105 MG/DL Calcium Level 9.4 8.5-10.1 MG/DL Total Bilirubin 0.3 0.1-1.0 MG/DL Aspartate Amino Transf (AST/SGOT) 20 5-34 U/L Alanine Aminotransferase (ALT/SGPT) 14 0-55 U/L Alkaline Phosphatase 65 40-136 U/L Total Protein 7.6 6.4-8.2 G/DL Albumin 4.3 3.2-4.5 G/DL Urine Color YELLOW Urine Clarity SLIGHTLY CLOUDY Urine pH 6 5-9 Urine Specific [place] 1.010 L 1.016-1.022 Urine Protein NEGATIVE NEGATIVE Urine Glucose (UA) NEGATIVE NEGATIVE Urine Ketones NEGATIVE NEGATIVE Urine Nitrite NEGATIVE NEGATIVE Urine Bilirubin NEGATIVE NEGATIVE Urine Urobilinogen NORMAL NORMAL MG/DL Urine Leukocyte Esterase 2+ H NEGATIVE Urine RBC (Auto) 3+ H NEGATIVE Urine RBC 0-2 /HPF Urine WBC RARE /HPF Urine Squamous Epithelial Cells 0-2 /HPF Urine Crystals NONE /LPF Urine Bacteria NEGATIVE /HPF Urine Casts NONE /LPF Urine Mucus NEGATIVE /LPF Urine Culture Indicated NO My Orders Orders - JACQUELINE COMER LEGAL SUPPORT SPECIALIST Cbc With Automated Diff (01/13/17 14:54) Comprehensive Metabolic Panel (01/13/17 14:54) Ua Culture If Indicated (01/13/17 14:54) Saline Lock/Iv-Start (01/13/17 14:54) Ns Iv 1000 Ml (Sodium Chloride 0.9%) (01/13/17 15:00) Ketorolac Injection (Toradol Injection) (01/13/17 15:00) Ondansetron Injection (Zofran Injectio (01/13/17 15:00) Lorazepam Injection (Ativan Injection) (01/13/17 15:00) Thyroid Stimulating Hormone (01/13/17 15:37) Free T4 (Free Thyroxine) (01/13/17 15:37) Medications Given in ED Current Medications Medications Dose Ordered Sig/Nickie Route Start Time Stop Time Status Last Admin Dose Admin Ketorolac Tromethamine 30 mg ONCE ONCE IVP 01/13/17 15:00 01/13/17 15:01 DC 01/13/17 15:21 30 MG Lorazepam 1 mg ONCE ONCE IVP 01/13/17 15:00 01/13/17 15:01 DC 01/13/17 15:27 1 MG Ondansetron HCl 4 mg ONCE ONCE IVP 01/13/17 15:00 01/13/17 15:01 DC 01/13/17 15:20 4 MG Vital Signs/I&O Vital Sign - Last 12Hours 01/13/17 14:56 Temp 98.3 Pulse 98 Resp 20 B/P (MAP) 139/119 Pulse Ox 99 O2 Delivery Room Air Departure Communication Progress Notes 1527-Pt states she is having a "reaction" to the toradol and zofran. She is breathing very fast and legs moving quickly. She states normally she has to have the bag of IV fluids first and then given the IV medications or else she will have a reaction to them. She also states she needs IV Xanax. I clarified with her that there is no such thing and she states she will take IV lorazepam but does not want first, she wants it placed in her bag of IV fluids. 1610-feels much better though still has some pain to the right side of her face. Her nausea is gone. She would like something different for pain. I offered her fentanyl but she declines because she may have a reaction to it she states. She agrees to go home with this level of pain and return for any worsening. Impression Impression: Primary Impression: Chronic pain Disposition: ADMITTED INPATIENT Condition: Stable Departure-Patient Inst. Decision time for Depature: 15:29 Referrals: GREG PATRICIA DO (PCP/Family) Primary Care Physician Patient Instructions: Chronic Pain (DC) Add. Discharge Instructions: 1. Return to ER for any concerns 2. See your doctor later this week All discharge instructions reviewed with patient and/or family. Voiced understanding. Copy Copies To 1: GREG PATRICIA PETER J APRN Jan 13, 2017 15:01
[2017-01-13 15:20] LABS: BASOPHILS # (AUTO) 0.1 10^3/uL (0.0-0.1); BASOPHILS % (AUTO) 1 % (0-10); EOSINOPHILS # (AUTO) 0.2 10^3/uL (0.0-0.3); EOSINOPHILS % (AUTO) 3 % (0-10); LYMPHOCYTES # (AUTO) 2.4 X 10^3 (1.0-4.0); LYMPHOCYTES % (AUTO) 39 % (12-44); MEAN CORPUSCULAR HEMOGLOBIN 31 PG (25-34); MEAN CORPUSCULAR HGB CONC 33 G/DL (32-36); MEAN CORPUSCULAR VOLUME 91 FL (80-99); MEAN PLATELET VOLUME 9.3 FL (7.4-10.4); MONOCYTES # (AUTO) 0.7 X 10^3 (0.0-1.0); MONOCYTES % (AUTO) 12 % (0-12); NEUTROPHILS # (AUTO) 2.8 X 10^3 (1.8-7.8); NEUTROPHILS % (AUTO) 45 % (42-75); PLATELET COUNT 282 10^3/uL (130-400); RED BLOOD COUNT 4.17 10^6/uL (4.35-5.85); RED CELL DISTRIBUTION WIDTH 13.4 % (10.0-14.5); WHITE BLOOD COUNT 6.1 10^3/uL (4.3-11.0)
[2017-01-13 15:24] LABS: BILIRUBIN,URINE NEGATIVE (NEGATIVE); KETONES,URINE NEGATIVE (NEGATIVE); LEUKOCYTE ESTERASE ,URINE 2+ (NEGATIVE); NITRITE,URINE NEGATIVE (NEGATIVE); PH,URINE 6 (5-9); PROTEIN,URINE NEGATIVE (NEGATIVE); UROBILINOGEN,URINE NORMAL (NORMAL)
[2017-01-13 15:37] LABS: SQUAMOUS EPITHELIAL CELL,UR 0-2 /HPF; WBC,URINE RARE /HPF
[2017-01-13 15:38] LABS: ALBUMIN 4.3 G/DL (3.2-4.5); BILIRUBIN,TOTAL 0.3 MG/DL (0.1-1.0); CALCIUM 9.4 MG/DL (8.5-10.1); CREATININE SERUM 1.19 MG/DL (0.60-1.30); POTASSIUM 3.4 MMOL/L (3.6-5.0); TOTAL PROTEIN 7.6 G/DL (6.4-8.2)
[2017-01-13 16:12] LABS: THYROID STIMULATING HORMONE 0.97 UIU/ML (0.35-4.94)
[2017-01-13 16:17] VITALS: BP 135/84
== END 2017-01-13 16:17 | disposition other institution (70) ==
LOC: EDUNIT# 14:46 → ER 14:49
DX: M54.2 Cervicalgia (principal); R51 Headache; G89.29 Other chronic pain
CPT/HCPCS: 36415; 80053; 81000; 84439; 84443; 85025

== ENCOUNTER 2017-04-14 12:09 | Outpatient (RCR) | payer BC ==
[2017-01-29 13:30] VITALS: BP 99/61
[2017-02-05] MEDS: LACTATED RINGERS 1,000 ML IV SCH (13:23)
[2017-02-05 13:26] VITALS: BP 101/65
[2017-02-05 14:25] VITALS: BP 101/65
[2017-02-19] MEDS: LACTATED RINGERS 1,000 ML IV SCH (13:25)
[2017-02-19 13:49] VITALS: BP 101/65
[2017-02-19 14:52] VITALS: BP 101/65
[2017-03-04 16:23] VITALS: BP 105/66
[2017-03-04 17:18] VITALS: BP 105/66
[2017-03-17] MEDS: LACTATED RINGERS 1,000 ML IV SCH (12:35)
[2017-03-17 14:50] VITALS: BP 105/79
[2017-04-01 12:45] VITALS: BP 102/81
[~2017-04-14] VITALS: Ht 170.2 cm; Wt 65.9 kg
[~2017-04-14 12:09] MED LIST changes: +FEXO180T84 PO; +KETOROLAC 30 MG/ML VIAL IV ONE; +KETOROLAC 30 MG/ML VIAL IV PRN; +KETOROLAC 30 MG/ML VIAL IVP ONE; +KETOROLAC 30 MG/ML VIAL ONE; +LACTATED RINGERS 1,000 ML IV ONE; +MAGNESIUM 1 GM/100 ML IVPB 100 ML IV ONE; +MAGNESIUM 1 GM/D5W 100 ML IVPB IV ONE; +MAGNESIUM 1 GM/D5W 100 ML IVPB IV SCH; +NS (IVPB) 50 ML ONE; +ONDANSETRON 4 MG/2 ML (SDV) Z0FRAN IV ONE; +ONDANSETRON 4 MG/2 ML (SDV) Z0FRAN IV PRN; +ONDANSETRON 4 MG/2 ML (SDV) Z0FRAN IVP ONE; +ONDANSETRON 4 MG/2 ML (SDV) Z0FRAN ONE; +ONDANSETRON 8 MG (ZOFRAN) ORAL DISSOLVE TAB PO ONE; +cefTRIAXone 1 GM (ROCEPHIN) VIAL ONE; +cefTRIAXone 1 GM/NS 50 ML IVPB IV ONE
[2017-04-14] MEDS ORDERED: ONDANSETRON 4 MG/2 ML (SDV) Z0FRAN ONE ×2 (12:18→12:25)
[2017-04-14] MEDS: LACTATED RINGERS 1,000 ML IV SCH (12:29)
[2017-04-14 12:55] VITALS: BP 96/73
[2017-04-14] MEDS ORDERED: LACTATED RINGERS 1,000 ML IV ONE (13:30)
[2017-04-14] MEDS ORDERED: ONDANSETRON 4 MG/2 ML (SDV) Z0FRAN IV PRN (13:30)
[2017-04-14] MEDS ORDERED: KETOROLAC 30 MG/ML VIAL IV PRN (13:30)
== END 2017-04-29 | disposition home or self-care (01) ==
LOC: SDC 12:09
PROVIDERS: ATTEND Internal Medicine
DX: E86.0 Dehydration (principal)
CPT/HCPCS: 96360; 96361; 96365; 96366; 96367; 96374; 96375

== ENCOUNTER 2017-07-23 13:20 | Outpatient (RCR) | payer BC ==
[2017-05-20 13:45] VITALS: BP 112/74
[2017-06-23 14:26] VITALS: BP 104/73
[2017-06-23] MEDS: ONDANSETRON 4 MG/2 ML (SDV) Z0FRAN IV PRN (15:01)
[2017-06-23] MEDS: LACTATED RINGERS 1,000 ML IV SCH (15:02)
[2017-07-10] MEDS: LACTATED RINGERS 1,000 ML IV SCH (12:50)
[2017-07-10 15:30] VITALS: BP 113/72
[~2017-07-23] VITALS: Ht 170.2 cm; Wt 65.9 kg
[~2017-07-23 13:20] MED LIST changes: +CATHETER FLUSH 10 ML SYR IV PRN; -KETOROLAC 30 MG/ML VIAL IV ONE; -KETOROLAC 30 MG/ML VIAL IVP ONE; +LACTATED RINGERS 1,000 ML IV NR; -MAGNESIUM 1 GM/100 ML IVPB 100 ML IV ONE; -MAGNESIUM 1 GM/D5W 100 ML IVPB IV ONE; -MAGNESIUM 1 GM/D5W 100 ML IVPB IV SCH; -NS (IVPB) 50 ML ONE; -ONDANSETRON 4 MG/2 ML (SDV) Z0FRAN IV ONE; -ONDANSETRON 4 MG/2 ML (SDV) Z0FRAN IVP ONE; -ONDANSETRON 8 MG (ZOFRAN) ORAL DISSOLVE TAB PO ONE; -cefTRIAXone 1 GM (ROCEPHIN) VIAL ONE
[2017-07-23 13:45] VITALS: BP 91/62
[2017-07-23] MEDS: LACTATED RINGERS 1,000 ML IV SCH (13:55)
[2017-07-23] MEDS: ONDANSETRON 4 MG/2 ML (SDV) Z0FRAN IV PRN (14:00)
== END 2017-08-03 | disposition home or self-care (01) ==
LOC: SDC 13:20
PROVIDERS: ATTEND Internal Medicine
DX: E86.0 Dehydration (principal)
CPT/HCPCS: 96360; 96365; 96375

== ENCOUNTER 2017-11-10 13:32 | Outpatient (RCR) | payer BC, OTHER ==
[2017-08-20 14:40] VITALS: BP 108/64
[2017-08-20 15:50] VITALS: BP 108/64
[2017-09-23] MEDS: ONDANSETRON 4 MG/2 ML (SDV) Z0FRAN IV PRN (13:38)
[2017-09-23 14:50] VITALS: BP 94/76
[2017-10-13 14:00] VITALS: BP 112/63
[2017-10-13] MEDS: ONDANSETRON 4 MG/2 ML (SDV) Z0FRAN IV PRN (14:13)
[2017-10-13 15:00] VITALS: BP 112/63
[~2017-11-10] VITALS: Ht 170.2 cm; Wt 65.9 kg
[~2017-11-10 13:32] MED LIST changes: -CATHETER FLUSH 10 ML SYR IV PRN; -KETOROLAC 30 MG/ML VIAL ONE; -LACTATED RINGERS 1,000 ML IV NR; +ONDANSETRON 4 MG/2 ML (SDV) Z0FRAN IV ONE; -ONDANSETRON 4 MG/2 ML (SDV) Z0FRAN IV PRN; -cefTRIAXone 1 GM/NS 50 ML IVPB IV ONE
[2017-11-10] MEDS: ONDANSETRON 4 MG/2 ML (SDV) Z0FRAN IV PRN (13:40)
[2017-11-10 14:40] VITALS: BP 116/75
[2017-11-10] MEDS ORDERED: LACTATED RINGERS 1,000 ML IV NR (15:00)
[2017-11-10] MEDS ORDERED: KETOROLAC 30 MG/ML VIAL IV PRN (15:15)
== END 2017-11-18 | disposition home or self-care (01) ==
LOC: SDC 13:32
PROVIDERS: ATTEND Internal Medicine
DX: E86.0 Dehydration (principal)
CPT/HCPCS: 96360; 96365; 96374; 96375

== ENCOUNTER 2018-01-19 13:37 | Outpatient (RCR) | payer BC, OTHER ==
[2017-12-18 13:57] VITALS: BP 100/70
[~2018-01-19] VITALS: Ht 170.2 cm; Wt 65.9 kg
[~2018-01-19 13:37] MED LIST changes: -ONDANSETRON 4 MG/2 ML (SDV) Z0FRAN IV ONE; +ONDANSETRON 4 MG/2 ML (SDV) Z0FRAN IV PRN; -ONDANSETRON 4 MG/2 ML (SDV) Z0FRAN ONE
[2018-01-19] MEDS ORDERED: LACTATED RINGERS 1,000 ML IV ONE (14:03)
[2018-01-19 14:15] VITALS: BP 119/76
[2018-01-19] MEDS ORDERED: KETOROLAC 30 MG/ML VIAL IV PRN (14:30)
[2018-01-19] MEDS ORDERED: LACTATED RINGERS 1,000 ML IV SCH (14:30)
[2018-01-19] MEDS ORDERED: ONDANSETRON 4 MG/2 ML (SDV) Z0FRAN IV PRN (14:30)
== END 2018-03-18 | disposition home or self-care (01) ==
LOC: SDC 13:37
PROVIDERS: ATTEND Internal Medicine
DX: E86.0 Dehydration (principal)
CPT/HCPCS: 96360; 96365

== ENCOUNTER → 2018-04-15 | Outpatient (CLI) | payer BC ==
[~2018-04-15] VITALS: Ht 170.2 cm; Wt 65.9 kg
[~2018-04-15] MED LIST changes: -KETOROLAC 30 MG/ML VIAL IV PRN; -LACTATED RINGERS 1,000 ML IV ONE; +NS (IVPB) 50 ML ONE; +NS IV 1000 ML 1,000 ML IV ONE; +ceFAZolin 1 GM/NS 50 ML IVPB IV ONE; +cefTRIAXone 1 GM/10 ML for IV (ROCEPHIN) ONE; +cefTRIAXone 1 GM/NS 50 ML IVPB IV ONE
[2018-04-15 13:50] VITALS: BP 109/76
[2018-04-15 15:15] VITALS: BP 109/76
== END ==
LOC: SDC 13:27
PROVIDERS: ATTEND Nurse Practitioner Family
DX: E86.0 Dehydration (principal)
CPT/HCPCS: 96361; 96365

== ENCOUNTER 2018-07-22 13:20 | Outpatient (RCR) | payer BC, OTHER ==
[2018-05-19 14:25] VITALS: BP 110/74
[2018-06-18 14:21] VITALS: BP 109/76
[~2018-07-22] VITALS: Ht 170.2 cm; Wt 65.9 kg
[~2018-07-22 13:20] MED LIST changes: -NS (IVPB) 50 ML ONE; +NS IV 1000 ML 1,000 ML ONE; -ceFAZolin 1 GM/NS 50 ML IVPB IV ONE; -cefTRIAXone 1 GM/10 ML for IV (ROCEPHIN) ONE; -cefTRIAXone 1 GM/NS 50 ML IVPB IV ONE
[2018-07-22] MEDS ORDERED: NS IV 1000 ML 1,000 ML ONE (13:24)
[2018-07-22 13:45] VITALS: BP 109/75
== END 2018-08-17 | disposition home or self-care (01) ==
LOC: SDC 13:20
PROVIDERS: ATTEND Internal Medicine
DX: E86.0 Dehydration (principal)
CPT/HCPCS: 96360; 96361

== ENCOUNTER 2018-10-26 13:31 | Outpatient (RCR) | payer BC, OTHER ==
[2018-08-19 13:40] VITALS: BP 110/71
[2018-09-15 13:40] VITALS: BP 125/75
[~2018-10-26] VITALS: Ht 170.2 cm; Wt 65.9 kg
[~2018-10-26 13:31] MED LIST changes: +NS IV 1000 ML 1,000 ML IV NR; +ONDANSETRON 4 MG/2 ML (SDV) Z0FRAN IV ONE
[2018-10-26] MEDS ORDERED: NS IV 1000 ML 1,000 ML ONE (13:35)
[2018-10-26 13:40] VITALS: BP 104/71
[2018-10-26] MEDS ORDERED: NS IV 1000 ML 1,000 ML IV ONE (14:00)
[2018-10-26] MEDS ORDERED: ONDANSETRON 4 MG/2 ML (SDV) Z0FRAN IV PRN (14:00)
== END 2018-11-17 | disposition home or self-care (01) ==
LOC: SDC 13:31
PROVIDERS: ATTEND Internal Medicine
DX: E86.0 Dehydration (principal)
CPT/HCPCS: 96360

== ENCOUNTER 2019-04-27 11:40 | Outpatient (CLI) | payer BC ==
[~2019-04-27] VITALS: Ht 170.2 cm; Wt 65.9 kg
[~2019-04-27 11:40] MED LIST changes: -NS IV 1000 ML 1,000 ML IV NR; -NS IV 1000 ML 1,000 ML IV ONE; -NS IV 1000 ML 1,000 ML ONE; -ONDANSETRON 4 MG/2 ML (SDV) Z0FRAN IV ONE; -ONDANSETRON 4 MG/2 ML (SDV) Z0FRAN IV PRN
[2019-04-27] MEDS ORDERED: WATER (STERILE) FOR INJECTION 10 ML ONE (11:47)
[2019-04-27] MEDS ORDERED: cefTRIAXone 1,000 MG IV (ROCEPHIN) VIAL ONE (11:47)
[2019-04-27] MEDS ORDERED: cefTRIAXone 1,000 MG/SWFI 10 ML IV PUSH IV ONE ×2 (12:00)
[2019-04-27 12:29] VITALS: BP 133/89
== END 2019-04-27 12:38 | disposition home or self-care (01) ==
LOC: SDC 11:40
PROVIDERS: ATTEND Internal Medicine
DX: N39.0 Urinary tract infection, site not specified (principal)

== ENCOUNTER → 2019-05-25 | Outpatient (CLI) | payer BC ==
--- NOTE | 2019-05-25 17:31 | Diagnostic Imaging Report ---
INDICATION: Distal radius fracture. TIME OF EXAM: 1:28 p.m. FINDINGS: Three views of the left wrist demonstrate a volar plate and numerous screws transfixing the distal radius. Hardware appears to be intact. No fracture or loosening is seen. Bony structures appear to be intact. No residual fracture lines are seen. There is generalized demineralization. There are triscaphe and first CMC joint degenerative changes noted. IMPRESSION: Postop changes. No acute fracture is detected. Dictated by: Dictated on workstation # [id number]
--- NOTE | 2019-05-25 17:42 | Diagnostic Imaging Report ---
INDICATION: Left hand deformity. TIME OF EXAM: 01:25 p.m. FINDINGS: Three views of the left hand were obtained. Fingers are held in slight flexion. There is a plate and numerous screws transfixing distal radius. Hardware appears to be intact. Carpus is unremarkable. Metacarpals are intact. Visualized phalanges appear to be intact. No fractures are seen. There is generalized demineralization. IMPRESSION: Postsurgical changes to the distal radius. There is generalized demineralization. No acute bony abnormality is detected. Dictated by: Dictated on workstation # [id number]
== END ==
LOC: RAD 13:10
PROVIDERS: ATTEND Nurse Practitioner Family
DX: S52.502A Unspecified fracture of the lower end of left radius, initial encounter for closed fracture (principal); M21.942 Unspecified acquired deformity of hand, left hand; Z98.890 Other specified postprocedural states
CPT/HCPCS: 73110; 73130

== ENCOUNTER 2019-06-09 13:25 | Outpatient (RCR) | payer BC, OTHER ==
[2019-03-29 14:17] VITALS: BP 103/62
[2019-04-27 11:42] VITALS: BP 133/89
[~2019-06-09] VITALS: Ht 170.2 cm; Wt 65.9 kg
[~2019-06-09 13:25] MED LIST changes: +NS IV 1000 ML 1,000 ML IV NR; +NS IV 1000 ML 1,000 ML IV SCH; +NS IV 1000 ML 1,000 ML ONE; +ONDANSETRON 4 MG/2 ML (SDV) Z0FRAN IV PRN; +WATER (STERILE) FOR INJECTION 10 ML ONE; +cefTRIAXone 1,000 MG IV (ROCEPHIN) VIAL ONE; +cefTRIAXone 1,000 MG/SWFI 10 ML IV PUSH IV ONE
[2019-06-09] MEDS ORDERED: NS IV 1000 ML 1,000 ML IV NR (13:45)
[2019-06-09 15:15] VITALS: BP 116/72
== END 2019-06-27 | disposition home or self-care (01) ==
LOC: SDC 13:25
PROVIDERS: ATTEND Internal Medicine
DX: E86.0 Dehydration (principal)
CPT/HCPCS: 96360; 96361; 96375

== ENCOUNTER 2019-08-09 11:18 | Outpatient (RCR) | payer BC, OTHER ==
[~2019-08-09] VITALS: Ht 170.2 cm; Wt 65.9 kg
[~2019-08-09 11:18] MED LIST changes: -NS IV 1000 ML 1,000 ML IV NR; -NS IV 1000 ML 1,000 ML IV SCH; -NS IV 1000 ML 1,000 ML ONE; -ONDANSETRON 4 MG/2 ML (SDV) Z0FRAN IV PRN; -WATER (STERILE) FOR INJECTION 10 ML ONE; -cefTRIAXone 1,000 MG IV (ROCEPHIN) VIAL ONE; -cefTRIAXone 1,000 MG/SWFI 10 ML IV PUSH IV ONE
[2019-08-09] MEDS ORDERED: NS IV 1000 ML 1,000 ML IV SCH (12:30)
[2019-08-09 13:40] VITALS: BP 107/80
== END 2019-08-09 13:40 | disposition home or self-care (01) ==
LOC: SDC 11:18
PROVIDERS: ATTEND Internal Medicine
DX: E86.0 Dehydration (principal)
CPT/HCPCS: 96360

== ENCOUNTER 2019-11-22 11:47 | Outpatient (RCR) | payer BC, OTHER ==
[2019-08-31 10:13] VITALS: BP 119/70
[2019-09-27] MEDS: NS IV 1000 ML 1,000 ML IV PRN (12:05)
[2019-09-27 13:02] VITALS: BP 112/68
[~2019-11-22 11:47] MED LIST changes: +NS IV 1000 ML 1,000 ML IV PRN; +NS IV 1000 ML 1,000 ML ONE; +WATER (STERILE) FOR INJECTION 10 ML ONE; +cefTRIAXone 1,000 MG IV (ROCEPHIN) VIAL ONE; +cefTRIAXone FOR IV USE 1,000 MG in WATER (STERILE) FOR INJECTION 10 ML IV ONE
[2019-11-22] MEDS: NS IV 1000 ML 1,000 ML IV PRN (12:04)
[2019-11-22 12:10] VITALS: BP 119/79
== END 2019-11-29 | disposition home or self-care (01) ==
LOC: SDC 11:47
PROVIDERS: ATTEND Nurse Practitioner Family
DX: E86.0 Dehydration (principal); N30.90 Cystitis, unspecified without hematuria
CPT/HCPCS: 96360; 96365; 96375

== ENCOUNTER → 2019-12-21 | Outpatient (CLI) | payer BC ==
[~2019-12-21] MED LIST changes: -NS IV 1000 ML 1,000 ML IV PRN; -NS IV 1000 ML 1,000 ML ONE; -WATER (STERILE) FOR INJECTION 10 ML ONE; -cefTRIAXone 1,000 MG IV (ROCEPHIN) VIAL ONE; -cefTRIAXone FOR IV USE 1,000 MG in WATER (STERILE) FOR INJECTION 10 ML IV ONE
--- NOTE | 2019-12-21 14:55 | Diagnostic Imaging Report ---
MRI LT LOWER EXT JOINT W/O TECHNIQUE: Multiplanar, multisequence MR imaging of the left knee was performed without contrast. COMPARISON: None available. INDICATION: Knee pain after fall. FINDINGS: MENISCI Medial meniscus: Complex tear involving the body and posterior horn of the medial meniscus. Within the posterior horn, there is a combined incomplete free edge radial tearing and a horizontal cleavage tear. The cleavage tear extends around the posterior aspect of the body and there is a large para meniscal cyst that extends from the mid aspect of the meniscal body around the entire posterior rim of the posterior horn. This has a maximal craniocaudal dimension of approximately 20 mm and a maximal width of 7 mm. Lateral meniscus: Normal. LIGAMENTS ACL: Intact. PCL: Intact. MCL: Intact. LCL: The lateral collateral ligamentous complex is intact. EXTENSOR MECHANISM The extensor mechanism is intact. CARTILAGE Medial compartment: Low-grade chondral wear throughout the medial compartment. No full-thickness chondromalacia. Lateral compartment: The lateral compartment articular cartilage is preserved without high-grade chondromalacia. Patellofemoral compartment: There is a focus of partial-thickness chondral fissuring and delamination at the patellar apex. Remainder of the patellofemoral compartment articular cartilage is preserved. BONE No fracture, stress fracture or osteonecrosis. SOFT TISSUE Small knee joint effusion. No Hickey's cyst. IMPRESSION: 1. Complex tear of the body and posterior horn of the medial meniscus has a horizontal cleavage component with a large para meniscal cyst extending along the periphery of the posterior horn and body. 2. Partial thickness chondromalacia at the patellar apex. Remainder of the articular cartilage throughout the knee is well-preserved. 3. The cruciate and collateral ligaments are intact. 4. Small knee joint effusion. Dictated by: Dictated on workstation # [id number]
== END ==
LOC: RAD 13:07
PROVIDERS: ATTEND Nurse Practitioner Family
DX: S83.232A Complex tear of medial meniscus, current injury, left knee, initial encounter (principal); M22.42 Chondromalacia patellae, left knee; M25.462 Effusion, left knee
CPT/HCPCS: 73721

== ENCOUNTER → 2020-01-06 | Outpatient (CLI) | payer BC ==
[~2020-01-06] VITALS: Ht 170.2 cm; Wt 68.1 kg
[~2020-01-06] MED LIST changes: +NS IV 1000 ML 1,000 ML IV PRN; +NS IV 1000 ML 1,000 ML ONE
[2020-01-06 15:41] VITALS: BP 102/71
== END ==
LOC: SDC 13:45
PROVIDERS: ATTEND Internal Medicine
DX: N30.90 Cystitis, unspecified without hematuria (principal); E86.0 Dehydration
CPT/HCPCS: 96365

== ENCOUNTER → 2020-03-07 | Outpatient (CLI) | payer BC ==
[~2020-03-07] MED LIST changes: -NS IV 1000 ML 1,000 ML IV PRN; -NS IV 1000 ML 1,000 ML ONE
--- NOTE | 2020-03-07 13:22 | Diagnostic Imaging Report ---
PROCEDURE: US Gallbladder. TECHNIQUE: Multiple real-time grayscale images were obtained over the right upper quadrant in various projections. INDICATION: Epigastric pain. FINDINGS: The liver is normal in size at 14.3 cm. No discrete liver mass is detected. The portal vein is patent and shows normal direction of flow. Gallbladder contains trace sludge. No stones are seen. There is no wall thickening or biliary ductal dilatation. The pancreas is unremarkable. Aorta is nonaneurysmal. IVC is patent. Right kidney is without evidence of calculi or hydronephrosis. There is no ascites. IMPRESSION: Minimal gallbladder sludge. The study is otherwise unremarkable. No gallstones or evidence of cholecystitis is seen. Dictated by: Dictated on workstation # [id number]
== END ==
LOC: RAD 09:11
PROVIDERS: ATTEND Nurse Practitioner Family
DX: R10.11 Right upper quadrant pain (principal)
CPT/HCPCS: 76705

== ENCOUNTER 2020-04-12 05:42 | Outpatient (CLI) | payer BC ==
[~2020-04-12] VITALS: Ht 170.2 cm; Wt 71.4 kg
[2020-04-12] MEDS ORDERED: FEXO180T84 PO (09:16)
[2020-04-12] MEDS ORDERED: FAMO20TA5 PO (09:16)
== END 2020-04-12 09:48 | disposition home or self-care (01) ==
LOC: PREOP 05:42
PROVIDERS: ATTEND Surgery
DX: Z01.818 Encounter for other preprocedural examination (principal)

== ENCOUNTER 2020-04-12 13:47 | Outpatient (RCR) | payer BC, OTHER ==
[2020-01-27 10:50] VITALS: BP 124/84
[2020-01-27] MEDS: NS IV 1000 ML 1,000 ML IV PRN (11:00)
[2020-01-27 12:10] VITALS: BP 124/84
[2020-02-22] MEDS: NS IV 1000 ML 1,000 ML IV PRN (12:00)
[2020-02-22 12:20] VITALS: BP 118/77
[2020-03-20 10:35] VITALS: BP 117/77
[2020-03-20] MEDS: NS IV 1000 ML 1,000 ML IV PRN (11:05)
[2020-03-20 12:05] VITALS: BP 117/77
[~2020-04-12] VITALS: Ht 170 cm
[2020-04-12] MEDS: NS IV 1000 ML 1,000 ML IV PRN (13:45)
[~2020-04-12 13:47] MED LIST changes: +FAMO20TA5 PO; +cefTRIAXone 1,000 MG/SWFI 10 ML IV PUSH IV ONE
[2020-04-12 14:08] VITALS: BP 117/78
[2020-04-12 14:39] VITALS: BP 117/78
== END 2020-04-26 | disposition home or self-care (01) ==
LOC: SDC 13:47
PROVIDERS: ATTEND Nurse Practitioner Family
DX: E86.0 Dehydration (principal); N30.90 Cystitis, unspecified without hematuria
CPT/HCPCS: 96360; 96365

== ENCOUNTER 2020-04-14 05:37 | Outpatient (RCR) | payer BC ==
[~2020-04-14] VITALS: Ht 170.2 cm; Wt 71.4 kg
[~2020-04-14 05:37] MED LIST changes: -cefTRIAXone 1,000 MG/SWFI 10 ML IV PUSH IV ONE
== END 2020-04-14 10:00 | disposition home or self-care (01) ==
LOC: PREOP 05:37
PROVIDERS: ATTEND Surgery
DX: Z01.818 Encounter for other preprocedural examination (principal); Z20.828 Contact with and (suspected) exposure to other viral communicable diseases
CPT/HCPCS: 87635

== ENCOUNTER 2020-04-17 09:08 | Day surgery (SDC) | payer BC ==
[2020-04-17] VITALS (8 sets, daily range): BP systolic 95–113; BP diastolic 54–83
[~2020-04-17] VITALS: Ht 170.2 cm; Wt 71.4 kg
[2020-04-17] MEDS ORDERED: NS IV 1000 ML 1,000 ML ONE (09:21)
--- NOTE | 2020-04-17 09:38 | Progress Note-Pre Operative ---
Pre-Operative Progress Note H&P Reviewed The H&P was reviewed, patient examined and no changes noted. Time Seen by Provider: 09:36 Date H&P Reviewed: Apr 17, 2020 Time H&P Reviewed: 09:37 Pre-Operative Diagnosis: Gastritis, RUQ pain, Screening colon EMELY PROCTOR DO Apr 17, 2020 09:38
[2020-04-17] MEDS ORDERED: NS IV 1000 ML 1,000 ML IV SCH (09:45)
[2020-04-17] MEDS ORDERED: ONDANSETRON 4 MG/2 ML (SDV) Z0FRAN ONE (09:56)
[2020-04-17] MEDS ORDERED: HURRICAINE EXT TUBE (BENZOCAINE) XX PRN (10:00)
[2020-04-17] MEDS ORDERED: MIDAZOLAM 2 MG/2 ML (VERSED) VIAL ONE (10:04)
[2020-04-17] MEDS ORDERED: PROPOFOL INJECTION 50 ML IV ONE (10:04)
[2020-04-17] MEDS ORDERED: ONDANSETRON 4 MG/2 ML (SDV) Z0FRAN IVP ONE (10:15)
--- NOTE | 2020-04-17 10:39 | Progress Note-Post Operative ---
Post-Operative Progess Note Surgeon (s)/Vinyl Installer (s) Surgeon EMELY PROCTOR DO Vinyl Installer: Dee De La Cruz, MSIII Pre-Operative Diagnosis Gastritis, RUQ pain, Screening colon Post-Operative Diagnosis Gastritis Gastric Polyp Diverticula rectal mass poor prep internal hemorrhoids Procedure & Operative Findings Date of Procedure 04/17/20 Procedure Performed/Findings EGD with bx EGD with Polypectomy by hot bx colon with hot bx Anesthesia Type IV sedation by REFRIGERATOR TESTER Estimated Blood Loss Estimated blood loss (mL): scant Specimens/Packing Specimens Removed antral bx GE jxn bx Gastric polyp Rectal bx EMELY PROCTOR DO Apr 17, 2020 10:39
--- NOTE | 2020-04-17 10:41 | Endoscopy Discharge Instruct ---
Endo Procedure/Findings Findings 1.: Polyp 2.: Gastritis 3.: Diverticulosis, Colitis 4.: Internal Hemorrhoids Discharge Instructions - Activity: You might feel a little sleepy until tomorrow. This is due to the medicine you received to relax you. Until tomorrow, you should: NOT drive a car, operate machinery or power tools. NOT drink any alcoholic beverages. NOT make any important decisions or sign importortant papers. Do not return to work until tomorrow, unless otherwise instructed. Resume previous activities tomorrow. Diet: Start by taking liquids. If you tolerate liquids, advance to solid food. 1.: Colonoscopy in 1 year, EGD in 3 years Notify Physician - If you experience excessive bleeding, unusual abdominal pain, fever, or chest pain, contact your doctor immediately. EMELY PROCTOR DO Apr 17, 2020 10:40
--- NOTE | 2020-04-17 12:38 | Anesthesia-General Post-Op ---
MAC Patient Condition Mental Status/LOC: Same as Preop Cardiovascular: Satisfactory Nausea/Vomiting: Absent Respiratory: Satisfactory Pain: Controlled Complications: Absent Post Op Complications Complications None Follow Up Care/Instructions Patient Instructions None needed. Anesthesiology Discharge Order Discharge Order Patient is doing well, no complaints, stable vital signs, no apparent adverse anesthesia problems. No complications reported per nursing. KIYA CHERRY CRNA Apr 17, 2020 12:38
--- NOTE | 2020-04-18 04:58 | OPERATIVE REPORT ---
DATE OF SERVICE: 04/17/2020 PREOPERATIVE DIAGNOSES: Gastritis, right upper quadrant pain, screening colonoscopy with a history of some rectal bleeding. POSTOPERATIVE DIAGNOSES: Gastritis, gastric polyp, poor prep, diverticula and some rectal mucosal changes, possibly mass and internal hemorrhoids. PROCEDURES: 1. EGD with biopsy. 2. EGD with gastric polypectomy with hot biopsy. 3. Colonoscopy with hot biopsy. SURGEON: Brandt Darden DO DELIVERY OF SHOPPING NEWS: Dee De La Cruz, MS3 ANESTHESIA: IV sedation by the FISHING FLOATS ASSEMBLER. SPECIMEN: Biopsy from the antrum, 2 gastric polyps removed and then a biopsy of the GE junction as well as a biopsy from the rectum. BLOOD LOSS: Scant. FLUIDS: Per anesthesia. POSTOPERATIVE CONDITION: Stable. INDICATION FOR PROCEDURE: The patient is a 55-year-old female who has never had a colonoscopy, needs one for screening, did have some blood, which she thought was due to some hemorrhoids. She also complained of gastritis and right upper quadrant pain. FINDINGS: The patient had some gastritis and she had some gastric polyps maybe some mild esophagitis. In the colon, unfortunately, she had a poor prep, lot of retained fecal material and she had some diverticula and then in the rectum, saw changes in the mucosa, unsure of these or masses, biopsy done. PROCEDURE NOTE: After informed consent was obtained, the patient was brought to the endoscopy suite, placed in bed in left lateral decubitus position. She was administered IV sedation by the FISHING FLOATS ASSEMBLER who then monitored her vitals the entire time, heart rate, blood pressure and pulse ox and we started with the EGD, placing scope down the mouth through the esophagus into the stomach. In the antrum, there is some mild gastritis, pushed into the duodenum. Duodenum looked fine. Pulled back and did a biopsy of the antrum and then noted gastric polyps, like to do a hot biopsy to remove these polyps, removed 2 polyps completely with hot biopsy and then saw a couple of more, retroflexed the scope, did not see hiatal hernia and then pulled the scope into the GE junction, did a biopsy and then pushed the scope back into the stomach, suctioned all the air out and then pulled the scope up the esophagus and out the mouth. Switched camera, switched gloves, went down below, started the colonoscopy, started pushing the scope in and noted some diverticula, took a picture of this, but then got up past the splenic flexure into the transverse colon and saw a lot of retained fecal material, large amount could not push past year, so then slowly withdrew the scope insufflating to look at the transverse colon to the splenic flexure, then down the descending colon through the sigmoid into the rectum. In the rectum, saw some changes of mucosa, possible masses, did a hot biopsy of these, sent to pathology. She also had some internal hemorrhoids, removed the scope. The patient tolerated the procedure. She was recovered in endoscopy suite. Job ID: [id number] DocumentID: [id number] Dictated Date: 04/17/2020 18:37:06 Early Childhood Education Coordinator Date: 04/18/2020 04:57:17 Dictated By: BRANDT DARDEN DO
== END 2020-04-17 11:50 | disposition home or self-care (01) ==
LOC: ENDO 09:08
PROVIDERS: ATTEND Surgery
DX: K57.90 Diverticulosis of intestine, part unspecified, without perforation or abscess without bleeding (principal); K64.8 Other hemorrhoids; K62.9 Disease of anus and rectum, unspecified; K31.7 Polyp of stomach and duodenum; K29.70 Gastritis, unspecified, without bleeding; K63.89 Other specified diseases of intestine; K21.0 Gastro-esophageal reflux disease with esophagitis; K80.10 Calculus of gallbladder with chronic cholecystitis without obstruction; F41.9 Anxiety disorder, unspecified; G47.33 Obstructive sleep apnea (adult) (pediatric); K59.09 Other constipation; G62.9 Polyneuropathy, unspecified; M19.91 Primary osteoarthritis, unspecified site; M79.7 Fibromyalgia; M54.9 Dorsalgia, unspecified; G89.29 Other chronic pain; Z88.0 Allergy status to penicillin; Z79.899 Other long term (current) drug therapy

== ENCOUNTER 2020-04-19 09:03 | Day surgery (SDC) | payer BC ==
[2020-04-19] VITALS (11 sets, daily range): BP systolic 112–135; BP diastolic 59–83
[~2020-04-19] VITALS: Ht 170.2 cm; Wt 71.4 kg
[2020-04-19] MEDS ORDERED: LACTATED RINGERS 1,000 ML IV PRN (09:15)
[2020-04-19] MEDS ORDERED: ceFAZolin 2 GM IV Premixed 50 ML IV ONE (09:15)
[2020-04-19] MEDS ORDERED: CATHETER FLUSH 10 ML SYR IV PRN (09:45)
[2020-04-19] MEDS ORDERED: IOPAMIDOL 61% 30 ML (ISOVUE 300) VIAL ONE (09:54)
[2020-04-19] MEDS ORDERED: BUP/EPI 0.25% 1:200,000 (MARCAINE) 30 ML VIAL ONE (09:54)
[2020-04-19] MEDS ORDERED: NS IV 1000 ML 1,000 ML IV PRN (10:00)
[2020-04-19] MEDS ORDERED: NS IV 1000 ML 1,000 ML ONE (10:02)
[2020-04-19] MEDS ORDERED: MIDAZOLAM 2 MG/2 ML (VERSED) VIAL ONE ×2 (10:09→10:43)
[2020-04-19] MEDS ORDERED: ONDANSETRON 4 MG/2 ML (SDV) Z0FRAN ONE (10:09)
[2020-04-19] MEDS ORDERED: fentaNYL INJECTION 100 MCG/2 ML AMP ONE (10:09)
[2020-04-19] MEDS ORDERED: SEVOFLURANE (ULTANE) 15 ML INHAL SOLN ONE ×4 (10:09→12:12)
[2020-04-19] MEDS ORDERED: proPOfol 200 MG/20 ML (DIPRIVAN) VIAL IV ONE (10:09)
--- NOTE | 2020-04-19 11:34 | Progress Note-Pre Operative ---
Pre-Operative Progress Note H&P Reviewed The H&P was reviewed, patient examined and no changes noted. Time Seen by Provider: 11:31 Date H&P Reviewed: Apr 19, 2020 Time H&P Reviewed: 11:32 Pre-Operative Diagnosis: Eddy/eddy EMELY PROCTOR DO Apr 19, 2020 11:34
[2020-04-19] MEDS ORDERED: ROCURONIUM 10 MG/ML 5 ML SYRINGE IV ONE (12:18)
--- NOTE | 2020-04-19 12:21 | Progress Note-Post Operative ---
Post-Operative Progess Note Surgeon (s)/Composition Professor (s) Surgeon EMELY PROCTOR DO Composition Professor: Adalid Pre-Operative Diagnosis Nirali/nirali Post-Operative Diagnosis same Procedure & Operative Findings Date of Procedure 04/19/20 Procedure Performed/Findings PROCEDURE: Laparoscopic cholecystectomy with intraoperative cholangiogram. COMPLICATIONS: None. PROCEDURE: The patient was taken to the operating suite and was prepped and draped in sterile fashion. A surgical pause was performed. Just superior to the umbilicus, a 12 mm incision was made. Dissection was taken down to the fascia, which was then scored and grasped with a Bhavin and the abdomen was then entered. A 0 Vicryl suture was placed in a xgiptm-xb-hahke fashion and a Jaramillo trocar was placed and secured. Pneumoperitoneum was achieved. A 5mm trochar place in the subxyphoid and 2 in the right upper quadrant. The gallbladder was then grasped and elevated. The cystic duct, and cystic artery were then dissected out. Clip was placed on the distal portion of the cystic duct which was then partially transected. An arrow catheter was inserted into the duct. The cholangiogram was then performed. No filing defects and contrast made its way into the duodenum. Catheter removed. Clips were placed on proximal portion of the cystic duct and then the duct was then transected. Clips were placed along the proximal and distal portion of the cystic artery which was then transected. Hook cautery was used to dissect the gallbladder from the gallbladder fossa achieving hemostasis. The gallbladder was placed in an Endobag and removed through the 12 mm trocar site. The abdomen was then reinspected. Copious amounts of irrigation were used to irrigate the abdomen and there were no signs of active bleeding. Hemostasis had been achieved. The 12 mm fascial defect was then closed with 0 Vicryl suture that had been placed in a pobmzf-ay-cbajt fashion. The abdomen was then desufflated, the trocars were removed. The abdomen was then washed and dried. The skin was then closed using 4-0 Monocryl in a subcuticular fashion. The abdomen was washed and dried and Skin Affix was place over incisions. Patient tolerated the procedure well without any complications and was taken to the recovery room in stable condition. Dr. Cordoba assisted on this case helping to make incisions, close incisions, identify anatomy and hold anatomy out of the way. Anesthesia Type GET Estimated Blood Loss Estimated blood loss (mL): scant Specimens/Packing Specimens Removed GB and contents EMELY PROCTOR DO Apr 19, 2020 12:21
--- NOTE | 2020-04-19 12:22 | Discharge Inst-Surgical ---
Discharge Inst-Surgical Depart Medication/Instructions New, Converted or Re-Newed RX: Other (pt to take motrin and tylenol at home) Patient Instructions Follow up Appt: Make appointment for 1 week. [phone] Instructions: No lifting greater than 20 pounds. No strenuous activity. May shower in 24 hours, no tub bath or soaking. Use incentive spirometer at home as directed. No Smoking Skin/Wound Care: May remove bandages in am. You need to leave the Dermabond on incision it will fall off on it's own. Symptoms to Report: Appetite Changes, Extremity Discoloration, Numbness/Tingling, Swelling Increased, Bleeding Excessive, Eyesight Changes, Pain Increased, Urine Color Change, Constipation(Persistent), Fever over 101 degree F, Pain/Pressure in chest, Urinating Difficulty, Cough Up/Vomit Blood, Heart Beat Irreg/Pounding, Pain/Pressure in jaw, Cramps in feet or legs, Lightheadedness, Pain/Pressure in shoulder, Diarrhea(Persistent), Memory Changes Suddenly, Questions/Concerns, Weight gain consecutive days, Dizziness/Fainting, Nausea/Vomiting, Shortness of Breath, Weight gain over 2 pounds If questions or concerns contact your physician Or seek help at emergency department. Activity Activity as Tolerated: Yes Activity Instructions: Avoid Stress to Incision Driving Instructions: No Driving/Refer to Diet Discharge Diet: Avoid Fatty Foods, Low Fat/Low Cholesterol Diet After 24 Hours: Clear Liquid if Nauseous If Any Problems/Questions/Issu: Contact Your Physician, Go to Emergency Room Skin/Wound Care Infection Signs and Symptoms: Increased Redness, Foul Odor of Wound, Increased Drainage, Skin Itchy or Has a Rash, Increased Swelling, Temperature Above 101 F Wound Care Comment: heating pad to shoulder or neck tonight for pain Bathing Instructions: Shower Stitches/Babar/Dermabond Dis: Dermabond Ice Pack: Ice On and Off Site (at incisions as needed) EMELY PROCTOR DO Apr 19, 2020 12:22
[2020-04-19] MEDS ORDERED: ONDANSETRON 4 MG/2 ML (SDV) Z0FRAN IVP PRN (12:45)
[2020-04-19] MEDS ORDERED: HYDROmorphone 2 MG/ML VIAL (DILAUDID) IV ONE (12:45)
[2020-04-19] MEDS ORDERED: HYDROmorphone 2 MG/ML VIAL (DILAUDID) ONE (12:47)
--- NOTE | 2020-04-19 13:25 | NUR ---
TO AMB SURG FROM PAR PER CART. QUITE DROWSY, BUT WAKENS EASILY AND C/O PAIN RATED 9. DERMABOND INTACT TO X4 LAP ABDOMINAL SITES, ICE PACK ON ABDOMEN. PREOPERATIVELY PT STATED SHE DOES NOT WANT ANY PRESCRIPTION FOR POST OP PAIN MEDICATION. STATES SHE HAS AN "INTOLERANCE" TO MANY MEDICATIONS AND WILL NOT FILL ANY POST OP PAIN MEDICATION PRESCRIPTION. STATED PENICILLIN HER ONLY MEDICATION ALLERGY WITH UNKNOWN REACTION, AND THAT "MY MOM JUST TOLD ME I CAN'T TAKE IT." ALSO REPORTS SHE HAD RECENT ORTHOPEDIC SURGERY FOR WRIST HARDWARE REMOVAL AND "I DIDN'T TAKE ANY PAIN MEDICATION FOR THAT. I DID FINE." RELAYED THIS INFO TO DR PROCTOR PREOPERATIVELY. ASKED PT NOW IF SHE WANTED TO CHANGE HER MIND ABOUT POST OP PAIN. STATES NO, SHE DOES NOT WANT PAIN MEDICATION. POSITIONED FOR COMFORT.
--- NOTE | 2020-04-19 13:47 | Diagnostic Imaging Report ---
INDICATION: Fluoroscopy for intraoperative cholangiogram. FINDINGS: Fluoroscopy was provided in the OR during intraoperative cholangiogram. 15 seconds of fluoroscopic time was utilized. Images demonstrate contrast being injected via the cystic duct remnant. The distal common duct was opacified and is without filling defect. Contrast flows into the duodenum. IMPRESSION: Fluoroscopy for intraoperative cholangiogram. Dictated by: Dictated on workstation # [id number]
--- NOTE | 2020-04-19 14:00 | NUR ---
PT CONTINUES TO RATE PAIN 8-9, AND CONTINUES TO REFUSE PAIN MEDICATION. TAKING PO FLUIDS WITHOUT PROBLEM.
--- NOTE | 2020-04-19 14:40 | Anesthesia-General Post-Op ---
General Patient Condition Mental Status/LOC: Same as Preop Cardiovascular: Satisfactory Nausea/Vomiting: Absent Respiratory: Satisfactory Pain: Controlled Complications: Absent Post Op Complications Complications None Follow Up Care/Instructions Patient Instructions None needed. Anesthesia/Patient Condition Patient Condition Patient is doing well, no complaints, stable vital signs, no apparent adverse anesthesia problems. No complications reported per nursing. D/C home per [facility] [place] Criteria: Yes YOMI YANES CRNA Apr 19, 2020 14:40
--- NOTE | 2020-04-19 15:00 | NUR ---
RESTING QUIETLY IN BED, PAIN RATED 3, AND STATES THIS IS TOLERABLE. DERMABOND REMAINS INTACT TO X4 LAP ABD SURGICAL SITES. STATES SHE IS READY FOR DISMISSAL. INSTRUCTED ON INCENTIVE SPIROMETRY.
== END 2020-04-19 15:25 | disposition home or self-care (01) ==
LOC: SDC 09:03
PROVIDERS: ATTEND Surgery
DX: K81.1 Chronic cholecystitis (principal); K29.70 Gastritis, unspecified, without bleeding; K92.1 Melena; G47.33 Obstructive sleep apnea (adult) (pediatric); I20.9 Angina pectoris, unspecified; G40.909 Epilepsy, unspecified, not intractable, without status epilepticus; G62.9 Polyneuropathy, unspecified; M79.7 Fibromyalgia; M06.9 Rheumatoid arthritis, unspecified; K21.9 Gastro-esophageal reflux disease without esophagitis; M54.9 Dorsalgia, unspecified; G89.29 Other chronic pain; K58.1 Irritable bowel syndrome with constipation; F41.9 Anxiety disorder, unspecified; Z87.19 Personal history of other diseases of the digestive system; Z79.899 Other long term (current) drug therapy; Z88.0 Allergy status to penicillin; Z11.2 Encounter for screening for other bacterial diseases; Z86.19 Personal history of other infectious and parasitic diseases
CPT/HCPCS: 76000; 87081; 88304

== ENCOUNTER 2020-06-27 13:38 | Outpatient (RCR) | payer BC, MEDICAID, OTHER ==
[2020-05-16 10:40] VITALS: BP 103/61
[2020-06-07 12:35] VITALS: BP 118/79
[~2020-06-27] VITALS: Ht 170.2 cm; Wt 71.4 kg
[2020-06-27 13:35] VITALS: BP 114/67
[~2020-06-27 13:38] MED LIST changes: +NS IV 1000 ML 1,000 ML IV ONE; +NS IV 1000 ML 1,000 ML ONE
== END 2020-08-14 | disposition home or self-care (01) ==
LOC: SDC 13:38
PROVIDERS: ATTEND Nurse Practitioner Family
DX: E86.0 Dehydration (principal); N30.90 Cystitis, unspecified without hematuria; Z20.828 Contact with and (suspected) exposure to other viral communicable diseases
CPT/HCPCS: 96360; 96361

== ENCOUNTER 2020-08-21 11:10 | Outpatient (RCR) | payer BC, OTHER ==
[~2020-08-21 11:10] MED LIST changes: -NS IV 1000 ML 1,000 ML IV ONE; -NS IV 1000 ML 1,000 ML ONE
[2020-08-21] MEDS ORDERED: NS IV 1000 ML 1,000 ML IV PRN (11:30)
[2020-08-21] MEDS ORDERED: cefTRIAXone 1,000 MG/SWFI 10 ML IV PUSH IV NR ×2 (12:00)
[2020-08-21 13:05] VITALS: BP 110/74
== END 2020-11-19 | disposition home or self-care (01) ==
LOC: SDC 11:10
PROVIDERS: ATTEND Nurse Practitioner Family
DX: E86.0 Dehydration (principal); N30.90 Cystitis, unspecified without hematuria
CPT/HCPCS: 96360

== ENCOUNTER → 2020-10-17 | Outpatient (CLI) | payer BC, OTHER ==
--- NOTE | 2020-10-17 14:17 | Diagnostic Imaging Report ---
INDICATION: Routine screening. Comparison is made prior mammogram 05/20/2008. 2-D and 3-D bilateral screening mammography was performed with CAD. Both breasts are heterogeneously dense, limiting the sensitivity of mammography. No mass or malignant appearing microcalcifications are seen. Axillae are unremarkable. IMPRESSION: BI-RADS Category 1 No mammographic features suspicious for malignancy are identified. ACR BI-RADS Category 1: Negative. Result letter will be mailed to the patient. Note: At least 10% of breast cancer is not imaged by mammography. Dictated by: Dictated on workstation # [id number]
== END ==
LOC: RAD 13:11
PROVIDERS: ATTEND Nurse Practitioner Family
DX: Z12.31 Encounter for screening mammogram for malignant neoplasm of breast (principal); Z00.01 Encounter for general adult medical examination with abnormal findings
CPT/HCPCS: 77063; 77067

== ENCOUNTER 2020-11-06 14:52 | Emergency (ER) | payer BC ==
[~2020-11-06] VITALS: Ht 170 cm; Wt 70.0 kg
[2020-11-06 15:30] LABS: BILIRUBIN,URINE NEGATIVE (NEGATIVE); CLARITY,URINE CLEAR; COLOR,URINE YELLOW; GLUCOSE, URINE (UA) NEGATIVE (NEGATIVE); KETONES,URINE NEGATIVE (NEGATIVE); LEUKOCYTE ESTERASE ,URINE 1+ (NEGATIVE); NITRITE,URINE NEGATIVE (NEGATIVE); PH,URINE 6.5 (5-9); PROTEIN,URINE NEGATIVE (NEGATIVE)
[2020-11-06] MEDS ORDERED: NS IV 1000 ML 1,000 ML IV SCH (15:30)
--- NOTE | 2020-11-06 15:33 | ED General ---
General Chief Complaint: General Problems/Pain Stated Complaint: BODY ACHES Nursing Triage Note: PT CO OF GENERALIZED PAIN STATES HAS ADVANCED LYMES DISEASE, LIGHT SENSITIVITY, ACHES, MOUTH SWOLLEN AND PAIN ALL OVER. STATES GETS IV NS ONCE A MONTH AND HAS NOT HAD IT FOR 3 MONTHS. Nursing Sepsis Screen: No Definite Risk Source of Information: Patient Exam Limitations: No Limitations History of Present Illness Date Seen by Provider: Nov 06, 2020 Time Seen by Provider: 15:30 Initial Comments To ER with reports of generalized pain secondary to her chronic advanced Lyme disease. She has light sensitivity and body aches, swollen mouth and pain all over. She gets IV fluids once a month outpatient but was unable to get a hold of Katelyn Kim who manages her chronic advanced Lyme disease so she presents to the emergency room. She informs me the fluids must be normal saline and not any sort of fluid with electrolytes in it because those make her sick. Timing/Duration: 1-2 Days Severity: Moderate Allergies and Home Medications Allergies Coded Allergies: Penicillins (Verified Allergy, Unknown, Pt has received Rocephin in the past w/o issue, 08/31/19) Home Medications Alprazolam 0.5 Mg Tablet, 0.5 MG PO EVERY 4-6 HOURS PRN for ANXIETY, (Reported) Famotidine 20 Mg Tablet, 20 MG PO DAILY PRN for HEARTBURN, (Reported) Fexofenadine HCl 180 Mg Tablet, 180 MG PO DAILY, (Reported) Ondansetron 8 Mg Tab.rapdis, 8 MG PO Q8H PRN for NAUSEA/VOMITING, (Reported) Patient Home Medication List Home Medication List Reviewed: Yes Review of Systems Review of Systems Constitutional: see HPI, malaise, weakness EENTM: see HPI, mouth pain Respiratory: no symptoms reported Cardiovascular: no symptoms reported Genitourinary: no symptoms reported Musculoskeletal: no symptoms reported, muscle pain Skin: no symptoms reported Psychiatric/Neurological: No Symptoms Reported, Headache Hematologic/Lymphatic: No Symptoms Reported Immunological/Allergic: no symptoms reported Past Bpnbzzs-Bnzinx-Lkdlfz Hx Patient Social History Alcohol Use: Denies Use Smoking Status: Never a Smoker 2nd Hand Smoke Exposure: No Recent Infectious Disease Expo: No Recent Hopitalizations: No Immunizations Up To Date Tetanus Booster (TDap): Unknown PED Vaccines UTD: No Seasonal Allergies Seasonal Allergies: Yes Past Medical History Surgeries: Yes (L LUMPECTOMY, L arm fx then hardware removed) Abdominal, Breast, Hysterectomy, Tubal Ligation Respiratory: Yes (low oxygen at hs doesn't use oxygen) Sleep Apnea Currently Using CPAP: No Currently Using BIPAP: No Cardiac: No Angina Neurological: Yes (LYME DZ,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 WITH ALLERGIC RX TO MEDS/ENVIRONMENTAL ALLERGY) Headaches /Migraines, Neuropathy, Seizure Disorder 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 Disorders: No Female 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 Disorders: Denies 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 Sexually Transmitted Disease: No HIV/AIDS: No Genitourinary: Yes UTI-Chronic Gastrointestinal: Yes Gastroesophageal Reflux, Chronic Constipation, Ulcer, Gall Bladder Disease, Irritable Bowel Musculoskeletal: Yes Arthritis, Fibromyalgia, Chronic Back Pain Endocrine: No HEENT: No Loss of Vision: Denies Cancer: No Psychosocial: Yes Anxiety, Depression Integumentary: No Blood Disorders: Yes (chronic Lyme's disease) Family Medical History Alcoholism G8 BROTHER G8 SISTER Arthritis 19 MOTHER FH: Parkinson's disease 19 FATHER FH: breast cancer 19 FATHER FH: leukemia G8 BROTHER G8 SISTER Headache disorder G8 SISTER G8 SISTER [place] Myocardial infarction 19 MOTHER PARKINSON 19 FATHER Parkinson's disease 19 FATHER TIA 19 FATHER TIAs No Family History of: AIDS Abdominal aortic aneurysm Jamal's disease Alzheimer's disease Asthma Cardiovascular disease Completed stroke Coronary thrombosis Diabetes mellitus Drug abuse Hypertension Kidney disease Respiratory disorder Seizure disorder Severe allergy Thyroid disease Tuberculosis No Pertinent Family Hx Physical Exam Vital Signs Vital Signs - First Documented 11/06/20 15:08 Temp 36.1 Pulse 86 Resp 18 B/P (MAP) 143/94 (110) Pulse Ox 98 Capillary Refill : Less Than 3 Seconds Height, Weight, BMI Height: 5'7.00" Weight: 145lbs. 3.0oz. [id number]; 24.00 BMI Method:Stated General Appearance: No Apparent Distress, WD/WN, Other (Wearing dark sunglasses inside, informs me she must of normal saline without electrolytes because the fluids with electrolytes make her sick.) Eyes: Bilateral Eye Normal Inspection, Bilateral Eye PERRL HEENT: PERRL/EOMI, TMs Normal Neck: Full Range of Motion, Normal Inspection Respiratory: Lungs Clear, Normal Breath Sounds, No Accessory Muscle Use, No Respiratory Distress Cardiovascular: Regular Rate, Rhythm, Normal Peripheral Pulses Gastrointestinal: Normal Bowel Sounds, Non Tender, Soft Extremity: Normal Capillary Refill Neurologic/Psychiatric: Alert, Oriented x3 Skin: Normal Color, Warm/Dry Progress/Results/Core Measures Suspected Sepsis Recent Fever Within 48 Hours: No Infection Criteria Present: None New/Unexplained Altered Menta: No Sepsis Screen: No Definite Risk SIRS Temperature: Pulse: 86 Respiratory Rate: 18 Laboratory Tests 11/06/20 15:35: White Blood Count 5.3 Blood Pressure 143 /94 Mean: 110 Laboratory Tests 11/06/20 15:35: Creatinine 1.17, Platelet Count 342, Total Bilirubin 0.5 Results/Orders Lab Results Laboratory Tests Test 11/06/20 15:20 11/06/20 15:35 Range/Units Urine Color YELLOW Urine Clarity CLEAR Urine pH 6.5 5-9 Urine Specific [place] <=1.005 1.016-1.022 Urine Protein NEGATIVE NEGATIVE Urine Glucose (UA) NEGATIVE NEGATIVE Urine Ketones NEGATIVE NEGATIVE Urine Nitrite NEGATIVE NEGATIVE Urine Bilirubin NEGATIVE NEGATIVE Urine Urobilinogen 0.2 < = 1.0 MG/DL Urine Leukocyte Esterase 1+ H NEGATIVE Urine RBC (Auto) 1+ H NEGATIVE Urine RBC 2-5 H /HPF Urine WBC 2-5 /HPF Urine Crystals PRESENT H /LPF Urine Amorphous Sediment RARE ROHIT URATES H /LPF Urine Bacteria TRACE /HPF Urine Casts NONE /LPF Urine Mucus NEGATIVE /LPF Urine Culture Indicated NO White Blood Count 5.3 4.3-11.0 10^3/uL Red Blood Count 4.39 3.80-5.11 10^6/uL Hemoglobin 13.4 11.5-16.0 g/dL Hematocrit 41 35-52 % Mean Corpuscular Volume 94 80-99 fL Mean Corpuscular Hemoglobin 31 25-34 pg Mean Corpuscular Hemoglobin Concent 32 32-36 g/dL Red Cell Distribution Width 13.4 10.0-14.5 % Platelet Count 342 130-400 10^3/uL Mean Platelet Volume 9.2 9.0-12.2 fL Immature Granulocyte % (Auto) 0 % Neutrophils (%) (Auto) 55 42-75 % Lymphocytes (%) (Auto) 32 12-44 % Monocytes (%) (Auto) 9 0-12 % Eosinophils (%) (Auto) 3 0-10 % Basophils (%) (Auto) 1 0-10 % Neutrophils # (Auto) 2.9 1.8-7.8 10^3/uL Lymphocytes # (Auto) 1.7 1.0-4.0 10^3/uL Monocytes # (Auto) 0.5 0.0-1.0 10^3/uL Eosinophils # (Auto) 0.1 0.0-0.3 10^3/uL Basophils # (Auto) 0.1 0.0-0.1 10^3/uL Immature Granulocyte # (Auto) 0.0 0.0-0.1 10^3/uL Sodium Level 139 135-145 MMOL/L Potassium Level 3.4 L 3.6-5.0 MMOL/L Chloride Level 103 98-107 MMOL/L Carbon Dioxide Level 24 21-32 MMOL/L Anion Gap 12 5-14 MMOL/L Blood Urea Nitrogen 7 7-18 MG/DL Creatinine 1.17 0.60-1.30 MG/DL Estimat Glomerular Filtration Rate 48 BUN/Creatinine Ratio 6 Glucose Level 90 70-105 MG/DL Calcium Level 8.9 8.5-10.1 MG/DL Corrected Calcium 8.6 8.5-10.1 MG/DL Total Bilirubin 0.5 0.1-1.0 MG/DL Aspartate Amino Transf (AST/SGOT) 19 5-34 U/L Alanine Aminotransferase (ALT/SGPT) 15 0-55 U/L Alkaline Phosphatase 103 40-136 U/L Total Protein 8.1 6.4-8.2 GM/DL Albumin 4.4 3.2-4.5 GM/DL My Orders Orders - JACQUELINE COMER APRN Ns Iv 1000 Ml (Sodium Chloride 0.9%) (11/06/20 15:30) Cbc With Automated Diff (11/06/20 15:21) Comprehensive Metabolic Panel (11/06/20 15:21) Ua Culture If Indicated (11/06/20 15:21) Vital Signs/I&O 11/06/20 15:08 Temp 36.1 Pulse 86 Resp 18 B/P (MAP) 143/94 (110) Pulse Ox 98 Capillary Refill : Less Than 3 Seconds Blood Pressure Mean: 110 Departure Impression Primary Impression: Aching pain Disposition: 01 HOME, SELF-CARE Condition: Stable Departure-Patient Inst. Decision time for Depature: 15:33 Referrals: GREG KIM DO (PCP/Family) Primary Care Physician Patient Instructions: NO INSTRUCTIONS GIVEN JACQUELINE COMER APRN Nov 06, 2020 15:33
[2020-11-06 15:46] LABS: AMORPHOUS SEDIMENT,UR RARE AMOR URATES /LPF; BACTERIA,URINE TRACE /HPF
[2020-11-06 15:51] LABS: BASOPHILS # (AUTO) 0.1 10^3/uL (0.0-0.1); BASOPHILS % (AUTO) 1 % (0-10); EOSINOPHILS # (AUTO) 0.1 10^3/uL (0.0-0.3); EOSINOPHILS % (AUTO) 3 % (0-10); HEMATOCRIT 41 % (35-52); HEMOGLOBIN 13.4 g/dL (11.5-16.0); LYMPHOCYTES # (AUTO) 1.7 10^3/uL (1.0-4.0); LYMPHOCYTES % (AUTO) 32 % (12-44); MEAN CORPUSCULAR HEMOGLOBIN 31 pg (25-34); MEAN CORPUSCULAR HGB CONC 32 g/dL (32-36); MEAN CORPUSCULAR VOLUME 94 fL (80-99); MEAN PLATELET VOLUME 9.2 fL (9.0-12.2); MONOCYTES # (AUTO) 0.5 10^3/uL (0.0-1.0); MONOCYTES % (AUTO) 9 % (0-12); NEUTROPHILS # (AUTO) 2.9 10^3/uL (1.8-7.8); NEUTROPHILS % (AUTO) 55 % (42-75); PLATELET COUNT 342 10^3/uL (130-400); WHITE BLOOD COUNT 5.3 10^3/uL (4.3-11.0)
[2020-11-06 16:15] LABS: ALBUMIN 4.4 GM/DL (3.2-4.5); BILIRUBIN,TOTAL 0.5 MG/DL (0.1-1.0); CALCIUM 8.9 MG/DL (8.5-10.1); CREATININE SERUM 1.17 MG/DL (0.60-1.30); POTASSIUM 3.4 MMOL/L (3.6-5.0); TOTAL PROTEIN 8.1 GM/DL (6.4-8.2)
[2020-11-06 17:08] VITALS: BP 128/83
== END 2020-11-06 17:08 | disposition home or self-care (01) ==
LOC: EDUNIT# 14:52 → ER 14:54
DX: R52 Pain, unspecified (principal); F41.9 Anxiety disorder, unspecified; F32.9 Major depressive disorder, single episode, unspecified; K21.9 Gastro-esophageal reflux disease without esophagitis; Z88.0 Allergy status to penicillin
CPT/HCPCS: 36415; 80053; 81000; 85025

== ENCOUNTER 2020-11-28 12:01 | Emergency (ER) | payer BC ==
[~2020-11-28] VITALS: Ht 170 cm; Wt 155.0 kg
--- NOTE | 2020-11-28 12:20 | ED General ---
General Stated Complaint: LOPEZ,FEVER,COUGH,SOB, BODY ACHES Source of Information: Patient Exam Limitations: No Limitations History of Present Illness Date Seen by Provider: Nov 28, 2020 Time Seen by Provider: 12:10 Initial Comments To ER with headache fever cough short of breath body aches that began 48 to 72 hours ago. She has a history of advanced chronic Lyme disease. Her pain is 10 out of 10 generelized currently as it is every day. Yesterday she took one fourth of a 200 mg Motrin tablet because she is very sensitive to medications. She has had nasal congestion and headache for several weeks. Allergies and Home Medications Allergies Coded Allergies: Penicillins (Verified Allergy, Unknown, Pt has received Rocephin in the past w/o issue, 08/31/19) butorphanol (Verified Allergy, Unknown, 11/28/20) ketorolac (Verified Allergy, Unknown, 11/28/20) Home Medications Alprazolam 0.5 Mg Tablet, 0.5 MG PO EVERY 4-6 HOURS PRN for ANXIETY, (Reported) Azithromycin 250 Mg Tablet, 500 MG PO DAILY Prescribed by: JACUQELINE COMER on 11/28/20 1311 Famotidine 20 Mg Tablet, 20 MG PO DAILY PRN for HEARTBURN, (Reported) Fexofenadine HCl 180 Mg Tablet, 180 MG PO DAILY, (Reported) Ondansetron 8 Mg Tab.rapdis, 8 MG PO Q8H PRN for NAUSEA/VOMITING, (Reported) Prednisone 20 Mg Tab, 40 MG PO DAILY Prescribed by: JACQUELINE COMER on 11/28/20 1311 Patient Home Medication List Home Medication List Reviewed: Yes Review of Systems Review of Systems Constitutional: see HPI, chills EENTM: nose congestion Respiratory: no symptoms reported Cardiovascular: no symptoms reported Genitourinary: no symptoms reported Musculoskeletal: no symptoms reported Skin: no symptoms reported Psychiatric/Neurological: No Symptoms Reported Hematologic/Lymphatic: No Symptoms Reported Past Yihtkmu-Flsldz-Kbciwq Hx Patient Social History 2nd Hand Smoke Exposure: No Recent Hopitalizations: No Immunizations Up To Date Tetanus Booster (TDap): Unknown PED Vaccines UTD: No Seasonal Allergies Seasonal Allergies: Yes Past Medical History Surgeries: Yes (L LUMPECTOMY, L arm fx then hardware removed) Abdominal, Breast, Hysterectomy, Tubal Ligation Respiratory: Yes (low oxygen at hs doesn't use oxygen) Sleep Apnea Currently Using CPAP: No Currently Using BIPAP: No Cardiac: No Angina Neurological: Yes (LYME DZ,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 WITH ALLERGIC RX TO MEDS/ENVIRONMENTAL ALLERGY) Headaches /Migraines, Neuropathy, Seizure Disorder 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 Disorders: No Female 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 Disorders: 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 [employer]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 Sexually Transmitted Disease: No HIV/AIDS: No Genitourinary: Yes UTI-Chronic Gastrointestinal: Yes Gastroesophageal Reflux, Chronic Constipation, Ulcer, Gall Bladder Disease, Irritable Bowel Musculoskeletal: Yes Arthritis, Fibromyalgia, Chronic Back Pain Endocrine: No HEENT: No Loss of Vision: Denies Cancer: No Psychosocial: Yes Anxiety, Depression Integumentary: No Blood Disorders: Yes (chronic Lyme's disease) Family Medical History Alcoholism G8 BROTHER G8 SISTER Arthritis 19 MOTHER FH: Parkinson's disease 19 FATHER FH: breast cancer 19 FATHER FH: leukemia G8 BROTHER G8 SISTER Headache disorder G8 SISTER G8 SISTER [place] Myocardial infarction 19 MOTHER PARKINSON 19 FATHER Parkinson's disease 19 FATHER TIA 19 FATHER TIAs No Family History of: AIDS Abdominal aortic aneurysm [place]'s disease Alzheimer's disease Asthma Cardiovascular disease Completed stroke Coronary thrombosis Diabetes mellitus Drug abuse Hypertension Kidney disease Respiratory disorder Seizure disorder Severe allergy Thyroid disease Tuberculosis No Pertinent Family Hx Physical Exam Vital Signs Vital Signs - First Documented 11/28/20 12:09 Temp 37.3 Pulse 109 Resp 18 B/P (MAP) 125/75 (92) Pulse Ox 97 Capillary Refill : Height, Weight, BMI Height: 5'7.00" Weight: 145lbs. 3.0oz. 65.409206iz; 24.00 BMI Method:Stated General Appearance: No Apparent Distress, WD/WN Eyes: Bilateral Eye Normal Inspection, Bilateral Eye PERRL, Bilateral Eye EOMI HEENT: PERRL/EOMI, TMs Normal Neck: Full Range of Motion, Normal Inspection Respiratory: No Accessory Muscle Use, No Respiratory Distress Cardiovascular: Regular Rate, Rhythm, Normal Peripheral Pulses Gastrointestinal: Normal Bowel Sounds, Non Tender, Soft Extremity: Normal Capillary Refill, Normal Inspection Neurologic/Psychiatric: Alert, Oriented x3 Skin: Normal Color, Warm/Dry Progress/Results/Core Measures Suspected Sepsis SIRS Temperature: Pulse: Respiratory Rate: Laboratory Tests 11/28/20 13:05: White Blood Count 7.6 Blood Pressure / Mean: Laboratory Tests 11/28/20 13:05: Creatinine 1.34H, Platelet Count 271, Total Bilirubin 0.4 Results/Orders Lab Results Laboratory Tests Test 11/28/20 12:13 11/28/20 13:05 11/28/20 13:14 Range/Units Coronavirus 2019 (FELIPE) Not Detected Not Detecte White Blood Count 7.6 4.3-11.0 10^3/uL Red Blood Count 4.40 3.80-5.11 10^6/uL Hemoglobin 13.2 11.5-16.0 g/dL Hematocrit 41 35-52 % Mean Corpuscular Volume 93 80-99 fL Mean Corpuscular Hemoglobin 30 25-34 pg Mean Corpuscular Hemoglobin Concent 32 32-36 g/dL Red Cell Distribution Width 13.0 10.0-14.5 % Platelet Count 271 130-400 10^3/uL Mean Platelet Volume 9.4 9.0-12.2 fL Immature Granulocyte % (Auto) 0 % Neutrophils (%) (Auto) 71 42-75 % Lymphocytes (%) (Auto) 17 12-44 % Monocytes (%) (Auto) 10 0-12 % Eosinophils (%) (Auto) 1 0-10 % Basophils (%) (Auto) 1 0-10 % Neutrophils # (Auto) 5.4 1.8-7.8 10^3/uL Lymphocytes # (Auto) 1.3 1.0-4.0 10^3/uL Monocytes # (Auto) 0.8 0.0-1.0 10^3/uL Eosinophils # (Auto) 0.0 0.0-0.3 10^3/uL Basophils # (Auto) 0.1 0.0-0.1 10^3/uL Immature Granulocyte # (Auto) 0.0 0.0-0.1 10^3/uL Sodium Level 136 135-145 MMOL/L Potassium Level 3.5 L 3.6-5.0 MMOL/L Chloride Level 101 98-107 MMOL/L Carbon Dioxide Level 24 21-32 MMOL/L Anion Gap 11 5-14 MMOL/L Blood Urea Nitrogen 6 L 7-18 MG/DL Creatinine 1.34 H 0.60-1.30 MG/DL Estimat Glomerular Filtration Rate 41 BUN/Creatinine Ratio 4 Glucose Level 111 H 70-105 MG/DL Calcium Level 9.2 8.5-10.1 MG/DL Corrected Calcium 9.1 8.5-10.1 MG/DL Total Bilirubin 0.4 0.1-1.0 MG/DL Aspartate Amino Transf (AST/SGOT) 17 5-34 U/L Alanine Aminotransferase (ALT/SGPT) 11 0-55 U/L Alkaline Phosphatase 105 40-136 U/L Total Protein 7.7 6.4-8.2 GM/DL Albumin 4.1 3.2-4.5 GM/DL Urine Color YELLOW Urine Clarity CLEAR Urine pH 6.0 5-9 Urine Specific Force <=1.005 1.016-1.022 Urine Protein NEGATIVE NEGATIVE Urine Glucose (UA) NEGATIVE NEGATIVE Urine Ketones NEGATIVE NEGATIVE Urine Nitrite NEGATIVE NEGATIVE Urine Bilirubin NEGATIVE NEGATIVE Urine Urobilinogen 0.2 < = 1.0 MG/DL Urine Leukocyte Esterase 1+ H NEGATIVE Urine RBC (Auto) 3+ H NEGATIVE Urine RBC 5-10 H /HPF Urine WBC 0-2 /HPF Urine Squamous Epithelial Cells RARE /HPF Urine Crystals NONE /LPF Urine Bacteria TRACE /HPF Urine Casts NONE /LPF Urine Mucus NEGATIVE /LPF Urine Culture Indicated NO Micro Results Microbiology 11/28/20 Influenza Types A,B Antigen (DAREN) - Final, Complete My Orders Orders - JACQUELINE COMER [employer] Cbc With Automated Diff (11/28/20 12:10) Comprehensive Metabolic Panel (11/28/20 12:10) Ua Culture If Indicated (11/28/20 12:10) Ed Iv/Invasive Line Start (11/28/20 12:10) Influenza A And B Antigens (11/28/20 12:10) Covid 19 Inhouse Test (11/28/20 12:10) Chest 1 View, Ap/Pa Only (11/28/20 13:00) Fentanyl Inj (Sublimaze Injection) (11/28/20 13:45) Ceftriaxone For Iv Use (Rocephin For I (11/28/20 14:00) Vital Signs/I&O 11/28/20 11/28/20 12:09 13:56 Temp 37.3 Pulse 109 88 Resp 18 18 B/P (MAP) 125/75 (92) 120/70 (92) Pulse Ox 97 97 Capillary Refill : Diagnostic Imaging Diagonstic Imaging: Xray Plain Films/CT/US/NM/MRI: chest Comments NAME: JOHNBARBI OconnorBelinda Jhons [facility] REC#: [id number] PT STATUS: REG ER : 1965 PHYSICIAN: JACQUELINE COMER APRN ADMIT DATE: 11/28/20/ER Draft Date of Exam:11/28/20 CHEST 1 VIEW, AP/PA ONLY INDICATION: Cough COMPARISON: 09/25/2016 TECHNIQUE: Single radiograph of the chest dated 11/28/2020. FINDINGS: The cardiac silhouette is within normal limits in size. No significant pulmonary vascular congestion. The lungs are clear. No pleural effusion. No pneumothorax. No acute osseous abnormality. IMPRESSION: Stable examination without acute cardiopulmonary abnormality. Dictated on workstation # [id number] Dict: 11/28/20 1313 Trans: 11/28/20 1315 CVB [id number] Interpreted by: LUBNA AMOS MD Electronically signed by: Departure Communication (Admissions) [id number]-she believes she has sinus infection. No fevers. She states that typically a bag of normal saline makes her feel better though she states she is drinking plenty of fluids and does not have diarrhea. She states that normal saline helps with her pain. 1344-yes patient states that she would like something for pain but she would like to "microdose it" she states that her primary care provider spoke with a pharmacist 1 time who went to a conference 1 time who recommended children's dose for people who are very sensitive to medications.. Impression Primary Impression: Sinusitis Additional Impression: Kidney dysfunction Disposition: HOME, SELF-CARE Condition: Stable Departure-Patient Inst. Decision time for Depature: 13:10 Referrals: GREG KIM DO (PCP/Family) Primary Care Physician Patient Instructions: Sinusitis, Adult (DC) Add. Discharge Instructions: Antibiotics and steroids as directed. Return to ER for any worsening or other concerns. Your kidney function test was a little on the low side. Follow-up with Dr. Kim for further evaluation of this. Scripts Prednisone (Prednisone) 20 Mg Tab 40 MG PO DAILY, #6 TAB 0 Refills Prov: JACQUELINE COMER APRN 11/28/20 Azithromycin (Azithromycin) 250 Mg Tablet 500 MG PO DAILY, #6 TAB 0 Refills Prov: JACQUELINE COMER APRN 11/28/20 Copy Copies To 1: GREG KIM PETER J APRN Nov 28, 2020 12:20
[2020-11-28 13:11] LABS: BASOPHILS # (AUTO) 0.1 10^3/uL (0.0-0.1); BASOPHILS % (AUTO) 1 % (0-10); EOSINOPHILS % (AUTO) 1 % (0-10); HEMATOCRIT 41 % (35-52); HEMOGLOBIN 13.2 g/dL (11.5-16.0); LYMPHOCYTES # (AUTO) 1.3 10^3/uL (1.0-4.0); LYMPHOCYTES % (AUTO) 17 % (12-44); MEAN CORPUSCULAR HEMOGLOBIN 30 pg (25-34); MEAN CORPUSCULAR HGB CONC 32 g/dL (32-36); MEAN CORPUSCULAR VOLUME 93 fL (80-99); MEAN PLATELET VOLUME 9.4 fL (9.0-12.2); MONOCYTES # (AUTO) 0.8 10^3/uL (0.0-1.0); MONOCYTES % (AUTO) 10 % (0-12); NEUTROPHILS # (AUTO) 5.4 10^3/uL (1.8-7.8); NEUTROPHILS % (AUTO) 71 % (42-75); PLATELET COUNT 271 10^3/uL (130-400); WHITE BLOOD COUNT 7.6 10^3/uL (4.3-11.0)
[2020-11-28] MEDS ORDERED: PRD20T PO (13:11)
[2020-11-28] MEDS ORDERED: AZIT250T12 PO (13:11)
--- NOTE | 2020-11-28 13:15 | Diagnostic Imaging Report ---
INDICATION: Cough COMPARISON: 09/25/2016 TECHNIQUE: Single radiograph of the chest dated 11/28/2020. FINDINGS: The cardiac silhouette is within normal limits in size. No significant pulmonary vascular congestion. The lungs are clear. No pleural effusion. No pneumothorax. No acute osseous abnormality. IMPRESSION: Stable examination without acute cardiopulmonary abnormality. Dictated by: Dictated on workstation # [id number]
[2020-11-28 13:21] LABS: BILIRUBIN,URINE NEGATIVE (NEGATIVE); CLARITY,URINE CLEAR; COLOR,URINE YELLOW; GLUCOSE, URINE (UA) NEGATIVE (NEGATIVE); KETONES,URINE NEGATIVE (NEGATIVE); LEUKOCYTE ESTERASE ,URINE 1+ (NEGATIVE); NITRITE,URINE NEGATIVE (NEGATIVE); PROTEIN,URINE NEGATIVE (NEGATIVE)
[2020-11-28 13:29] LABS: ALBUMIN 4.1 GM/DL (3.2-4.5); BILIRUBIN,TOTAL 0.4 MG/DL (0.1-1.0); CALCIUM 9.2 MG/DL (8.5-10.1); CREATININE SERUM 1.34 MG/DL (0.60-1.30); POTASSIUM 3.5 MMOL/L (3.6-5.0); TOTAL PROTEIN 7.7 GM/DL (6.4-8.2)
[2020-11-28] MEDS ORDERED: fentaNYL INJ 100 MCG/2 ML AMP IVP PRN (13:45)
[2020-11-28 13:56] VITALS: BP 120/70
[2020-11-28] MEDS ORDERED: cefTRIAXone FOR IV USE 1,000 MG in WATER (STERILE) FOR INJECTION 10 ML IV ONE (14:00)
[2020-11-28 14:02] LABS: BACTERIA,URINE TRACE /HPF; SQUAMOUS EPITHELIAL CELL,UR RARE /HPF; WBC,URINE 0-2 /HPF
== END 2020-11-28 14:10 | disposition home or self-care (01) ==
LOC: EDUNIT# 12:01 → ER 12:02
DX: J32.9 Chronic sinusitis, unspecified (principal); N28.9 Disorder of kidney and ureter, unspecified; F41.9 Anxiety disorder, unspecified; Z88.0 Allergy status to penicillin; Z88.6 Allergy status to analgesic agent; Z88.8 Allergy status to other drugs, medicaments and biological substances; Z20.822 Contact with and (suspected) exposure to COVID-19; Z79.52 Long term (current) use of systemic steroids
CPT/HCPCS: 71045; 80053; 81000; 85025; 87804; 99284; U0002; 36415; 87635

== ENCOUNTER 2021-02-01 18:07 | Emergency (ER) | payer BC ==
[~2021-02-01] VITALS: Ht 170.2 cm; Wt 70.3 kg
[~2021-02-01 18:07] MED LIST changes: +AZIT250T12 PO; +PRD20T PO
[2021-02-01 18:19] VITALS: BP 135/89
--- NOTE | 2021-02-01 18:42 | ED General ---
General Chief Complaint: General Problems/Pain Stated Complaint: BODY ACHES Nursing Triage Note: PT AMBULATE TO ROOM 06 WITH C/O GENERALIZED PAIN. PT REPORTS "ACHING ALL OVER MY BODY" A RESULT OF [place] DISEASE X7 YEARS AGO. PT REPORTS SHE CANNOT TAKE PAIN MEDICINE BECAUSE SHE IS "HYPER SENSITIVE". PT STATES THAT NORMAL SALINE RELIEVES THE PAIN. Source of Information: Patient Exam Limitations: No Limitations History of Present Illness Date Seen by Provider: Feb 01, 2021 Time Seen by Provider: 18:28 Initial Comments Patient is a 55-year-old female who presents to the emergency department today complaining of a flare of her chronic Lyme disease. Patient states that she has had Lyme disease for many years and occasionally has flareups that cause her chronic debilitating pain. Patient states that she is very hypersensitive to most, if not all medications including pivq-twy-dtcuyzi pain remedies such as Tylenol and ibuprofen. Patient states that normally she comes to the emergency department and receives "a bag" of normal saline and that significantly improves her symptoms. She complains of headache body aches chronic abdominal pain. She tells me that she has a history of bladder prolapse and is following up with the doctor regarding this. She states she has chronic UTIs but denies dysuria, urgency or frequency at this time. No reported fevers chills cough shortness of breath or Covid complaints. Patient states that she has chronic diarrhea. She is on no medications for her Lyme disease currently. She has a primary care physician that she sees and she states her last appointment was about a week ago. She also states that she has some depressed renal function but she has not really had a check that she is aware of since 2015 but she is scheduled with a turn down worker for March of this year. All other review of systems reviewed and negative except as stated above. Timing/Duration: 1 Day Severity: Severe Associated Systoms: Nausea/Vomiting (Nausea), Other (Chronic diarrhea, myalgias) Allergies and Home Medications Allergies Coded Allergies: Penicillins (Verified Allergy, Unknown, Pt has received Rocephin in the past w/o issue, 08/31/19) butorphanol (Verified Allergy, Unknown, 11/28/20) ketorolac (Verified Allergy, Unknown, 11/28/20) Home Medications Alprazolam 0.5 Mg Tablet, 0.5 MG PO EVERY 4-6 HOURS PRN for ANXIETY, (Reported) Azithromycin 250 Mg Tablet, 500 MG PO DAILY Prescribed by: JACQUELINE COMER on 11/28/20 1311 Famotidine 20 Mg Tablet, 20 MG PO DAILY PRN for HEARTBURN, (Reported) Fexofenadine HCl 180 Mg Tablet, 180 MG PO DAILY, (Reported) Ondansetron 8 Mg Tab.rapdis, 8 MG PO Q8H PRN for NAUSEA/VOMITING, (Reported) Prednisone 20 Mg Tab, 40 MG PO DAILY Prescribed by: JACQUELINE COMER on 11/28/20 1311 Patient Home Medication List Home Medication List Reviewed: Yes Review of Systems Review of Systems Constitutional: see HPI EENTM: no symptoms reported Respiratory: no symptoms reported Cardiovascular: no symptoms reported Gastrointestinal: diarrhea, nausea Genitourinary: no symptoms reported : No Musculoskeletal: muscle pain, muscle cramps Skin: no symptoms reported All Other Systems Reviewed Negative Unless Noted: Yes Past Xrvubau-Xzwmbo-Qsqszc Hx Patient Social History Tobacco Use?: No Use of E-Cig and/or Vaping dev: No Substance use?: No Alcohol Use?: No Pt feels they are or have been: No Immunizations Up To Date Tetanus Booster (TDap): Unknown PED Vaccines UTD: No Seasonal Allergies Seasonal Allergies: Yes Past Medical History Surgeries: Yes (L LUMPECTOMY, L arm fx then hardware removed) Abdominal, Breast, Hysterectomy, Tubal Ligation Respiratory: Yes (low oxygen at hs doesn't use oxygen) Sleep Apnea Currently Using CPAP: No Currently Using BIPAP: No Cardiac: No Angina Neurological: Yes (LYME DZ,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 WITH ALLERGIC RX TO MEDS/ENVIRONMENTAL ALLERGY) Headaches /Migraines, Neuropathy, Seizure Disorder 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 Disorders: No Female 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 Disorders: Denies 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 Sexually Transmitted Disease: No HIV/AIDS: No Genitourinary: Yes UTI-Chronic Gastrointestinal: Yes Gastroesophageal Reflux, Chronic Constipation, Ulcer, Gall Bladder Disease, Irritable Bowel Musculoskeletal: Yes Arthritis, Fibromyalgia, Chronic Back Pain Endocrine: No HEENT: No Loss of Vision: Denies Cancer: No Psychosocial: Yes Anxiety, Depression Integumentary: No Blood Disorders: Yes (chronic Lyme's disease) Family Medical History Alcoholism G8 BROTHER G8 SISTER Arthritis 19 MOTHER FH: Parkinson's disease 19 FATHER FH: breast cancer 19 FATHER FH: leukemia G8 BROTHER G8 SISTER Headache disorder G8 SISTER G8 SISTER LEUK Myocardial infarction 19 MOTHER PARKINSON 19 FATHER Parkinson's disease 19 FATHER TIA 19 FATHER TIAs No Family History of: AIDS Abdominal aortic aneurysm Jamal's disease Alzheimer's disease Asthma Cardiovascular disease Completed stroke Coronary thrombosis Diabetes mellitus Drug abuse Hypertension Kidney disease Respiratory disorder Seizure disorder Severe allergy Thyroid disease Tuberculosis No Pertinent Family Hx Physical Exam Vital Signs Vital Signs - First Documented 02/01/21 18:19 Temp 36.7 Pulse 81 Resp 17 B/P (MAP) 135/89 (104) O2 Delivery Room Air Capillary Refill : Less Than 3 Seconds Height, Weight, BMI Height: 5'7.00" Weight: 145lbs. 3.0oz. 65.062854ns; 24.00 BMI Method:Stated General Appearance: No Apparent Distress, WD/WN Eyes: Bilateral Eye Normal Inspection, Bilateral Eye PERRL, Bilateral Eye EOMI HEENT: PERRL/EOMI Neck: Normal Inspection, Non Tender, Supple Respiratory: Lungs Clear, Normal Breath Sounds, No Accessory Muscle Use, No Respiratory Distress Cardiovascular: Regular Rate, Rhythm Gastrointestinal: Normal Bowel Sounds, Non Tender, Soft Extremity: Normal Capillary Refill, Normal Inspection, Normal Range of Motion, Non Tender, No Calf Tenderness Neurologic/Psychiatric: Alert, Oriented x3, No Motor/Sensory Deficits, Normal Mood/Affect Skin: Normal Color, Warm/Dry Progress/Results/Core Measures Suspected Sepsis SIRS Temperature: Pulse: 81 Respiratory Rate: 17 Blood Pressure 135 /89 Mean: 104 Laboratory Tests 02/01/21 18:48: Creatinine 1.36H Results/Orders Lab Results Laboratory Tests Test 02/01/21 18:48 Range/Units Sodium Level 135 135-145 MMOL/L Potassium Level 3.6 3.6-5.0 MMOL/L Chloride Level 101 98-107 MMOL/L Carbon Dioxide Level 26 21-32 MMOL/L Anion Gap 8 5-14 MMOL/L Blood Urea Nitrogen 8 7-18 MG/DL Creatinine 1.36 H 0.60-1.30 MG/DL Estimat Glomerular Filtration Rate 40 BUN/Creatinine Ratio 6 Glucose Level 128 H 70-105 MG/DL Calcium Level 8.7 8.5-10.1 MG/DL My Orders Orders - ADELE TSANG MD Ed Iv/Invasive Line Start (02/01/21 18:37) Basic Metabolic Panel (02/01/21 18:37) Ns Iv 1000 Ml (Sodium Chloride 0.9%) (02/01/21 18:45) Vital Signs/I&O 02/01/21 18:19 Temp 36.7 Pulse 81 Resp 17 B/P (MAP) 135/89 (104) O2 Delivery Room Air Capillary Refill : Less Than 3 Seconds Blood Pressure Mean: 104 Progress Note : Time: 19:58 Progress Note Patient's fluids have been completed. I reviewed her chemistry she does not fact have slightly depressed renal function. She again has follow-up scheduled for March of this year. She has no clinical or objective findings to warrant further studies from the emergency department. She did not get immediate relief from her fluids and tells me that "it takes a while" after the fluids have been infused to make her feel better. Patient is ready for discharge. All questions have been sought and answered. Patient is stable for discharge. Departure Impression Primary Impression: Chronic pain Qualified Codes: G89.4 - Chronic pain syndrome Disposition: 01 HOME, SELF-CARE Condition: Stable Departure-Patient Inst. Decision time for Depature: 19:59 Referrals: GREG PATRICIA DO (PCP/Family) Primary Care Physician Patient Instructions: CHRONIC PAIN Add. Discharge Instructions: Continue your home prescribed medications as directed by your primary care doctor. Follow-up with the turn down worker in March as scheduled. Return to the emergency room for any new, concerning or emergent complaints. ADELE TSANG MD Feb 01, 2021 18:42
[2021-02-01] MEDS ORDERED: NS IV 1000 ML 1,000 ML IV SCH (18:45)
[2021-02-01 19:06] LABS: POTASSIUM 3.6 MMOL/L (3.6-5.0)
[2021-02-01 19:07] LABS: CALCIUM 8.7 MG/DL (8.5-10.1)
[2021-02-01 19:11] LABS: CREATININE SERUM 1.36 MG/DL (0.60-1.30)
== END 2021-02-01 20:11 | disposition home or self-care (01) ==
LOC: EDUNIT# 18:07 → ER 18:09
DX: G89.29 Other chronic pain (principal); F41.9 Anxiety disorder, unspecified; K21.9 Gastro-esophageal reflux disease without esophagitis; Z79.52 Long term (current) use of systemic steroids; Z79.899 Other long term (current) drug therapy
CPT/HCPCS: 36415; 80048

== ENCOUNTER 2021-04-15 17:02 | Emergency (ER) | payer BC ==
[~2021-04-15] VITALS: Ht 170.2 cm; Wt 72.6 kg
[2021-04-15] MEDS ORDERED: NS IV 1000 ML 1,000 ML ONE (17:36)
[2021-04-15] MEDS ORDERED: NS IV 1000 ML 1,000 ML IV SCH (17:45)
[2021-04-15 17:51] LABS: BASOPHILS # (AUTO) 0.1 10^3/uL (0.0-0.1); BASOPHILS % (AUTO) 1 % (0-10); EOSINOPHILS % (AUTO) 0 % (0-10); HEMATOCRIT 38 % (35-52); HEMOGLOBIN 12.7 g/dL (11.5-16.0); LYMPHOCYTES # (AUTO) 0.4 10^3/uL (1.0-4.0); LYMPHOCYTES % (AUTO) 8 % (12-44); MEAN CORPUSCULAR HEMOGLOBIN 31 pg (25-34); MEAN CORPUSCULAR HGB CONC 34 g/dL (32-36); MEAN CORPUSCULAR VOLUME 91 fL (80-99); MONOCYTES # (AUTO) 0.6 10^3/uL (0.0-1.0); MONOCYTES % (AUTO) 12 % (0-12); NEUTROPHILS # (AUTO) 3.9 10^3/uL (1.8-7.8); NEUTROPHILS % (AUTO) 78 % (42-75); PLATELET COUNT 295 10^3/uL (130-400)
[2021-04-15 18:03] LABS: ALBUMIN 4.1 GM/DL (3.2-4.5)
[2021-04-15 18:04] LABS: POTASSIUM 3.9 MMOL/L (3.6-5.0)
[2021-04-15 18:05] LABS: CALCIUM 9.3 MG/DL (8.5-10.1)
[2021-04-15 18:06] LABS: TOTAL PROTEIN 7.9 GM/DL (6.4-8.2)
[2021-04-15 18:08] LABS: BILIRUBIN,TOTAL 0.4 MG/DL (0.1-1.0)
[2021-04-15 18:10] LABS: CREATININE SERUM 1.31 MG/DL (0.60-1.30)
--- NOTE | 2021-04-15 18:21 | ED General ---
General Stated Complaint: BODY ACHES,CHILLS,COUGH,CONGESTION,NO FEVER Source of Information: Patient Exam Limitations: No Limitations (JACQUELINE COMER APRN) History of Present Illness Date Seen by Provider: Apr 15, 2021 Time Seen by Provider: 17:30 Initial Comments To ER with body aches chills congestion fever nausea headache that are most intense today but states that she actually felt kind of poorly on 04/13/2021. Unvaccinated against Covid. Timing/Duration: 2-3 Days Severity: Moderate Associated Systoms: Headaches (No), Nausea/Vomiting (JACQUELINE COMER APRN) Allergies and Home Medications Allergies Coded Allergies: Penicillins (Verified Allergy, Unknown, Pt has received Rocephin in the past w/o issue, 08/31/19) butorphanol (Verified Allergy, Unknown, 11/28/20) ketorolac (Verified Allergy, Unknown, 11/28/20) Patient Home Medication List Home Medication List Reviewed: Yes (JACQUELINE COMER APRN) Alprazolam (Alprazolam) 0.5 Mg Tablet, 0.5 MG PO EVERY 4-6 HOURS PRN for ANXIETY, (Reported) Entered as Reported by: HARVEY RUBIO on 05/08/16 145 Azithromycin (Azithromycin) 250 Mg Tablet, 500 MG PO DAILY Prescribed by: JACQUELINE COMER on 11/28/20 1311 Cefuroxime Axetil (Cefuroxime) 500 Mg Tablet, 500 MG PO BID Prescribed by: JACQUELINE COMER on 04/15/211956 Famotidine (Famotidine) 20 Mg Tablet, 20 MG PO DAILY PRN for HEARTBURN, (Reported) Entered as Reported by: TOÑITO COREA on 04/12/20 0916 Fexofenadine HCl (Kaitlynn Allergy) 180 Mg Tablet, 180 MG PO DAILY, (Reported) Entered as Reported by: TOÑITO COREA on 04/12/20 0916 Ondansetron (Ondansetron Odt) 8 Mg Tab.rapdis, 8 MG PO Q8H PRN for NAUSEA/VOMITING, (Reported) Entered as Reported by: HARVEY RUBIO on 05/08/16 145 Prednisone (Prednisone) 20 Mg Tab, 40 MG PO DAILY Prescribed by: JACQUELINE COMER on 11/28/20 1311 Promethazine HCl (Promethazine Tablet) 25 Mg Tablet, 0.5 TAB PO BID PRN for NAUSEA/VOMITING Prescribed by: JACQUELINE COMER on 04/15/211956 Review of Systems Review of Systems Constitutional: see HPI, malaise EENTM: see HPI Respiratory: see HPI, cough Genitourinary: no symptoms reported Musculoskeletal: no symptoms reported Skin: no symptoms reported Psychiatric/Neurological: No Symptoms Reported Hematologic/Lymphatic: No Symptoms Reported (JACQUELINE COMER APRN) Past Dnchbmq-Ojmvlx-Nhdjcr Hx Immunizations Up To Date Tetanus Booster (TDap): Unknown PED Vaccines UTD: No (JACQUELINE COMER APRN) Seasonal Allergies Seasonal Allergies: Yes (JACQUELINE COMER APRN) Past Medical History Surgeries: Yes (L LUMPECTOMY, L arm fx then hardware removed) Abdominal, Breast, Hysterectomy, Tubal Ligation Respiratory: Yes (low oxygen at hs doesn't use oxygen) Sleep Apnea Currently Using CPAP: No Currently Using BIPAP: No Cardiac: No Angina Neurological: Yes (LYME DZ,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 WITH ALLERGIC RX TO MEDS/ENVIRONMENTAL ALLERGY) Headaches /Migraines, Neuropathy, Seizure Disorder 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 Disorders: No 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 Sexually Transmitted Disease: No HIV/AIDS: No Genitourinary: Yes UTI-Chronic Gastrointestinal: Yes Gastroesophageal Reflux, Chronic Constipation, Ulcer, Gall Bladder Disease, Irritable Bowel Musculoskeletal: Yes Arthritis, Fibromyalgia, Chronic Back Pain Endocrine: No HEENT: No Loss of Vision: Denies Cancer: No Psychosocial: Yes Anxiety, Depression Integumentary: No Blood Disorders: Yes (chronic Lyme's disease) (JACQUELINE COMER APRN) Family Medical History Alcoholism G8 BROTHER G8 SISTER Arthritis 19 MOTHER FH: Parkinson's disease 19 FATHER FH: breast cancer 19 FATHER FH: leukemia G8 BROTHER G8 SISTER Headache disorder G8 SISTER G8 SISTER LEUK Myocardial infarction 19 MOTHER PARKINSON 19 FATHER Parkinson's disease 19 FATHER TIA 19 FATHER TIAs No Family History of: AIDS Abdominal aortic aneurysm Jamal's disease Alzheimer's disease Asthma Cardiovascular disease Completed stroke Coronary thrombosis Diabetes mellitus Drug abuse Hypertension Kidney disease Respiratory disorder Seizure disorder Severe allergy Thyroid disease Tuberculosis No Pertinent Family Hx (JACQUELINE COMER APRN) Physical Exam Vital Signs Vital Signs - First Documented 04/15/21 17:27 Temp 37.6 Pulse 112 Resp 18 B/P (MAP) 124/87 (99) Pulse Ox 95 O2 Delivery Room Air (RAMAKRISHNA CARBALLO DO) Vital Signs Capillary Refill : (JACQUELINE COMER APRN) Height, Weight, BMI Height: 5'7.00" Weight: 145lbs. 3.0oz. 65.940331xl; 24.00 BMI Method:Stated General Appearance: No Apparent Distress, WD/WN, Other (Oxygen saturation 96% room air. She has tried some Zofran at home without much relief so she would like a low-dose of something for pain and a low-dose of something additional for nausea.) Eyes: Bilateral Eye Normal Inspection, Bilateral Eye PERRL, Bilateral Eye EOMI HEENT: PERRL/EOMI, TMs Normal Neck: Full Range of Motion, Normal Inspection Respiratory: No Accessory Muscle Use, No Respiratory Distress Cardiovascular: Regular Rate, Rhythm, Normal Peripheral Pulses Gastrointestinal: Normal Bowel Sounds, Non Tender, Soft Extremity: Normal Capillary Refill, Normal Inspection Neurologic/Psychiatric: Alert, Oriented x3 Skin: Normal Color, Warm/Dry (JACQUELINE COMER APRN) Progress/Results/Core Measures Suspected Sepsis SIRS Temperature: Pulse: Respiratory Rate: Laboratory Tests 04/15/21 17:40: White Blood Count 5.0 Blood Pressure / Mean: Laboratory Tests 04/15/21 17:40: Creatinine 1.31H, Platelet Count 295, Total Bilirubin 0.4 (JACQUELINE COMER APRN) Results/Orders Lab Results Laboratory Tests Test 04/15/21 17:36 04/15/21 17:40 04/15/21 18:56 04/15/21 19:30 Range/Units SARS-CoV-2 RNA (RT-PCR) Detected H Not Detecte White Blood Count 5.0 4.3-11.0 10^3/uL Red Blood Count 4.12 3.80-5.11 10^6/uL Hemoglobin 12.7 11.5-16.0 g/dL Hematocrit 38 35-52 % Mean Corpuscular Volume 91 80-99 fL Mean Corpuscular Hemoglobin 31 25-34 pg Mean Corpuscular Hemoglobin Concent 34 32-36 g/dL Red Cell Distribution Width 13.7 10.0-14.5 % Platelet Count 295 130-400 10^3/uL Mean Platelet Volume 9.0 9.0-12.2 fL Immature Granulocyte % (Auto) 0 % Neutrophils (%) (Auto) 78 H 42-75 % Lymphocytes (%) (Auto) 8 L 12-44 % Monocytes (%) (Auto) 12 0-12 % Eosinophils (%) (Auto) 0 0-10 % Basophils (%) (Auto) 1 0-10 % Neutrophils # (Auto) 3.9 1.8-7.8 10^3/uL Lymphocytes # (Auto) 0.4 L 1.0-4.0 10^3/uL Monocytes # (Auto) 0.6 0.0-1.0 10^3/uL Eosinophils # (Auto) 0.0 0.0-0.3 10^3/uL Basophils # (Auto) 0.1 0.0-0.1 10^3/uL Immature Granulocyte # (Auto) 0.0 0.0-0.1 10^3/uL Sodium Level 130 L 135-145 MMOL/L Potassium Level 3.9 3.6-5.0 MMOL/L Chloride Level 95 L 98-107 MMOL/L Carbon Dioxide Level 23 21-32 MMOL/L Anion Gap 12 5-14 MMOL/L Blood Urea Nitrogen 4 L 7-18 MG/DL Creatinine 1.31 H 0.60-1.30 MG/DL Estimat Glomerular Filtration Rate 42 BUN/Creatinine Ratio 3 Glucose Level 113 H 70-105 MG/DL Calcium Level 9.3 8.5-10.1 MG/DL Corrected Calcium 9.2 8.5-10.1 MG/DL Total Bilirubin 0.4 0.1-1.0 MG/DL Aspartate Amino Transf (AST/SGOT) 18 5-34 U/L Alanine Aminotransferase (ALT/SGPT) 14 0-55 U/L Alkaline Phosphatase 89 40-136 U/L Troponin I < 0.028 <0.028 NG/ML Total Protein 7.9 6.4-8.2 GM/DL Albumin 4.1 3.2-4.5 GM/DL C-Reactive Protein High Sensitivity 0.72 H 0.00-0.50 MG/DL Urine Color YELLOW Urine Clarity SL CLOUDY Urine pH 6.0 5-9 Urine Specific [place] 1.020 1.016-1.022 Urine Protein NEGATIVE NEGATIVE Urine Glucose (UA) NEGATIVE NEGATIVE Urine Ketones NEGATIVE NEGATIVE Urine Nitrite NEGATIVE NEGATIVE Urine Bilirubin NEGATIVE NEGATIVE Urine Urobilinogen 0.2 < = 1.0 MG/DL Urine Leukocyte Esterase 3+ H NEGATIVE Urine RBC (Auto) 3+ H NEGATIVE Urine RBC 25-50 H /HPF Urine WBC 50-100 H /HPF Urine Squamous Epithelial Cells 5-10 /HPF Urine Crystals NONE /LPF Urine Bacteria FEW H /HPF Urine Casts NONE /LPF Urine Mucus NEGATIVE /LPF Urine Culture Indicated YES (RAMAKRISHNA CARBALLO DO) Micro Results Microbiology 04/15/21 Urine Culture - Final, Complete >=3 Gram Positive Isolates (RAMAKRISHNA CARBALLO DO) Vital Signs/I&O 04/15/21 04/15/21 17:27 20:28 Temp 37.6 Pulse 112 97 Resp 18 18 B/P (MAP) 124/87 (99) 122/79 Pulse Ox 95 95 O2 Delivery Room Air Room Air (RAMAKRISHNA CARBALLO DO) Vital Signs/I&O Capillary Refill : (JACQEULINE COMER APRN) Departure Communication (Admissions) Family Conversation I discussed with her [place]. She is NOT interested in receiving this. Her EKG shows sinus tachycardia rate of 104 normal intervals no ectopy no ST segment change (JACQUELINE COMER APRN) Impression Primary Impression: COVID-19 Additional Impression: Urinary tract infection Disposition: 01 HOME, SELF-CARE Condition: Stable Departure-Patient Inst. Decision time for Depature: 19:00 (JACQUELINE COMER APRN) Referrals: GREG PATRICIA DO (PCP/Family) Primary Care Physician Patient Instructions: COVID-19 (DC), Urinary Tract Infection, Adult (DC) Add. Discharge Instructions: 1. Tylenol and ibuprofen for pain and fever control. Nausea medication as needed. Return to ER if any concerns. Scripts Cefuroxime Axetil (Cefuroxime) 500 Mg Tablet 500 MG PO BID, #10 TAB Prov: JACQUELINE COMER APRN 04/15/21 Promethazine HCl (Promethazine Tablet) 25 Mg Tablet 0.5 TAB PO BID PRN for NAUSEA/VOMITING, #14 TAB Prov: JACQUELINE COMER APRN 04/15/21 ATTENDING PHYSICIAN NOTE: I WAS PHYSICALLY PRESENT ER PHYSICIAN WHEN THIS PATIENT WAS IN ER, BUT I WAS NOT INVOLVED IN DECISION MAKING OR ANY CARE OF THIS PATIENT (RAMAKRISHNA CARBALLO DO) JACQUELINE COMER APRN Apr 15, 2021 18:20 RAMAKRISHNA CARBALLO DO Apr 17, 2021 14:53
[2021-04-15] MEDS ORDERED: PROMETHAZINE INJ 25 MG/ML (PHENERGAN) AMP ONE (18:47)
[2021-04-15] MEDS ORDERED: fentaNYL INJ 100 MCG/2 ML AMP ONE (18:48)
--- NOTE | 2021-04-15 18:57 | Diagnostic Imaging Report ---
EXAM: CHEST 1 VIEW, AP/PA ONLY INDICATION: Chest pain. COMPARISON: 11/28/2020. FINDINGS: Normal heart size and pulmonary vascularity. No dense consolidation, pleural effusion or pneumothorax. No acute osseous finding. IMPRESSION: No acute cardiopulmonary finding. Dictated by: Dictated on workstation # [id number]
[2021-04-15] MEDS ORDERED: PROMETHAZINE INJ 25 MG/ML (PHENERGAN) AMP IVP ONE (19:00)
[2021-04-15] MEDS ORDERED: fentaNYL INJ 100 MCG/2 ML AMP IVP PRN (19:00)
[2021-04-15 19:39] LABS: BILIRUBIN,URINE NEGATIVE (NEGATIVE); CLARITY,URINE SL CLOUDY; COLOR,URINE YELLOW; GLUCOSE, URINE (UA) NEGATIVE (NEGATIVE); KETONES,URINE NEGATIVE (NEGATIVE); LEUKOCYTE ESTERASE ,URINE 3+ (NEGATIVE); NITRITE,URINE NEGATIVE (NEGATIVE); PROTEIN,URINE NEGATIVE (NEGATIVE)
[2021-04-15 19:49] LABS: BACTERIA,URINE FEW /HPF; RBC,URINE 25-50 /HPF; WBC,URINE 50-100 /HPF
[2021-04-15] MEDS ORDERED: CEFU500T63 PO (19:57)
[2021-04-15] MEDS ORDERED: PROM25TA14 PO (19:57)
[2021-04-15] MEDS ORDERED: cefTRIAXone 1,000 MG in WATER (STERILE) FOR INJECTION 10 ML IV ONE (20:00)
[2021-04-15 20:28] VITALS: BP 122/79
== END 2021-04-15 20:20 | disposition home or self-care (01) ==
LOC: EDUNIT# 17:02 → ER 17:05
DX: U07.1 COVID-19 (principal); N39.0 Urinary tract infection, site not specified; G47.30 Sleep apnea, unspecified; F41.9 Anxiety disorder, unspecified; K21.9 Gastro-esophageal reflux disease without esophagitis; Z79.899 Other long term (current) drug therapy; Z79.52 Long term (current) use of systemic steroids
CPT/HCPCS: 36415; 71045; 80053; 81000; 84484; 85025; 86141; 87088; 87636; 93005

== ENCOUNTER → 2021-04-23 | Outpatient (CLI) | payer BC ==
[~2021-04-23] VITALS: Ht 170 cm; Wt 72.0 kg
[~2021-04-23] MED LIST changes: +ACETAMINOPHEN 500 MG TAB (TYLENOL) PO PRN; +CASIRIVIMAB/IMDEVIMAB 1,200 MG in NS (IVPB) 250 ML IV ONE; +CEFU500T63 PO; +EPINEPHrine INJECTION 1 MG/ML AMP IM PRN; +ONDANSETRON 4 MG/2 ML (SDV) Z0FRAN IV PRN; +PROM25TA14 PO; +diphenhydrAMINE 50 MG/ML INJ (BENADRYL) IV PRN
[2021-04-23 11:40] VITALS: BP 126/66
[2021-04-23 12:35] VITALS: BP 98/56
[2021-04-23 13:32] VITALS: BP 94/69
== END ==
LOC: INFUSION 11:33
PROVIDERS: ATTEND Nurse Practitioner Family
DX: Z23 Encounter for immunization (principal); U07.1 COVID-19

== ENCOUNTER 2021-07-05 17:50 | Emergency (ER) | payer BC ==
[~2021-07-05] VITALS: Ht 170 cm; Wt 72.0 kg
[~2021-07-05 17:50] MED LIST changes: -ACETAMINOPHEN 500 MG TAB (TYLENOL) PO PRN; -CASIRIVIMAB/IMDEVIMAB 1,200 MG in NS (IVPB) 250 ML IV ONE; -EPINEPHrine INJECTION 1 MG/ML AMP IM PRN; -ONDANSETRON 4 MG/2 ML (SDV) Z0FRAN IV PRN; -diphenhydrAMINE 50 MG/ML INJ (BENADRYL) IV PRN
--- NOTE | 2021-07-05 18:40 | ED General ---
General Chief Complaint: General Problems/Pain Stated Complaint: ABNORMAL SODIUM LEVELS Nursing Triage Note: ARRIVED VIA AMB ET SENT FROM URGENT CARE. LABS WERE DRAWN YESTERDAY AND HER SODIUM WAS 119. Source of Information: Patient Exam Limitations: No Limitations History of Present Illness Date Seen by Provider: Jul 05, 2021 Time Seen by Provider: 18:26 Initial Comments Patient ER by private conveyance from home with chief complaint that she was having some body aches last couple days and a cough starting yesterday. She went to urgent care yesterday they did a chest x-ray some labs and swabbed her. She is negative for flu and Covid. She was told she had a cold but unfortunately today when her labs came back they told her her sodium was low 115. This is new to her she is never had low sodium before. She is not on any diuretics or blood pressure medications. She did get a shot of Toradol for her body aches which helped yesterday. 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 Kim. She has late stage chronic Lyme's disease not on any antibiotics. She did receive Rocephin for UTI about 4 weeks ago. She says she noted her urine to be very dark today but not having any discharge or dysuria. She does take antihistamines, H2 blockers for an acid, Xanax and Zofran routinely. She does not take any herbals or doiv-kop-upcgryi's. About 6 weeks ago she had a surgery for a cystocele that was causing her to have frequent UTIs. Uneventful recovery since then other than the one UTI. Allergies and Home Medications Allergies Coded Allergies: Penicillins (Verified Allergy, Unknown, Pt has received Rocephin in the past w/o issue, 08/31/19) butorphanol (Verified Allergy, Unknown, 11/28/20) ketorolac (Verified Allergy, Unknown, 11/28/20) Patient Home Medication List Home Medication List Reviewed: Yes Alprazolam (Alprazolam) 0.5 Mg Tablet, 0.5 MG PO EVERY 4-6 HOURS PRN for ANXIETY, (Reported) Entered as Reported by: HARVEY RUBIO on 05/08/16 1456 Azithromycin (Azithromycin) 250 Mg Tablet, 500 MG PO DAILY Prescribed by: JACQUELINE COMER on 11/28/20 1311 Cefuroxime Axetil (Cefuroxime) 500 Mg Tablet, 500 MG PO BID Prescribed by: JACQUELINE COMER on 04/15/211956 Famotidine (Famotidine) 20 Mg Tablet, 20 MG PO DAILY PRN for HEARTBURN, (Reported) Entered as Reported by: TOÑITO COREA on 04/12/20 0916 Fexofenadine HCl (Kaitlynn Allergy) 180 Mg Tablet, 180 MG PO DAILY, (Reported) Entered as Reported by: TOÑITO COREA on 04/12/20 0916 Ondansetron (Ondansetron Odt) 8 Mg Tab.rapdis, 8 MG PO Q8H PRN for NAUSEA/VOMITING, (Reported) Entered as Reported by: HARVEY RUBIO on 05/08/16 145 Prednisone (Prednisone) 20 Mg Tab, 40 MG PO DAILY Prescribed by: JACQUELINE COMER on 11/28/20 131 Promethazine HCl (Promethazine Tablet) 25 Mg Tablet, 0.5 TAB PO BID PRN for NAUSEA/VOMITING Prescribed by: JACQUELINE COMER on 04/15/211956 Review of Systems Review of Systems Constitutional: No chills, No diaphoresis; malaise EENTM: No ear discharge, No ear pain Respiratory: cough; No short of breath Cardiovascular: No chest pain, No palpitations Gastrointestinal: No abdominal pain, No nausea, No vomiting Genitourinary: No discharge, No dysuria Musculoskeletal: No back pain, No joint pain All Other Systems Reviewed Negative Unless Noted: Yes Past Dxzacfw-Ngyufs-Wqzipr Hx Patient Social History Tobacco Use?: No Substance use?: No Alcohol Use?: No Immunizations Up To Date Tetanus Booster (TDap): Unknown PED Vaccines UTD: No First/Initial COVID19 Vaccinat: NONE Second COVID19 Vaccination Fabio: NONE Seasonal Allergies Seasonal Allergies: Yes Past Medical History Surgeries: Yes (L LUMPECTOMY, L arm fx then hardware removed) Abdominal, Breast, Hysterectomy, Tubal Ligation Respiratory: Yes (low oxygen at hs doesn't use oxygen) Sleep Apnea Currently Using CPAP: No Currently Using BIPAP: No Cardiac: No Angina Neurological: Yes (LYME DZ,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 WITH ALLERGIC RX TO MEDS/ENVIRONMENTAL ALLERGY) Headaches /Migraines, Neuropathy, Seizure Disorder 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 Disorders: No Female 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 Disorders: Denies [employer] History: Hysterectomy Sexually Transmitted Disease: No HIV/AIDS: No Genitourinary: Yes UTI-Chronic Gastrointestinal: Yes Gastroesophageal Reflux, Chronic Constipation, Ulcer, Gall Bladder Disease, Irritable Bowel Musculoskeletal: Yes Arthritis, Fibromyalgia, Chronic Back Pain Endocrine: No HEENT: No Loss of Vision: Denies Cancer: No Psychosocial: Yes Anxiety, Depression Integumentary: No Blood Disorders: Yes (chronic Lyme's disease) Family Medical History Alcoholism G8 BROTHER G8 SISTER Arthritis 19 MOTHER FH: Parkinson's disease 19 FATHER FH: breast cancer 19 FATHER FH: leukemia G8 BROTHER G8 SISTER Headache disorder G8 SISTER G8 SISTER LEUK Myocardial infarction 19 MOTHER PARKINSON 19 FATHER Parkinson's disease 19 FATHER TIA 19 FATHER TIAs No Family History of: AIDS Abdominal aortic aneurysm [place]'s disease Alzheimer's disease Asthma Cardiovascular disease Completed stroke Coronary thrombosis Diabetes mellitus Drug abuse Hypertension Kidney disease Respiratory disorder Seizure disorder Severe allergy Thyroid disease Tuberculosis No Pertinent Family Hx Physical Exam Vital Signs Vital Signs - First Documented 07/05/21 18:00 Temp 36.3 Pulse 119 Resp 16 B/P (MAP) 124/92 (103) Pulse Ox 96 O2 Delivery Room Air Capillary Refill : Less Than 3 Seconds Height, Weight, BMI Height: 5'7.00" Weight: 145lbs. 3.0oz. 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 as Tested Skin: Normal Color, Warm/Dry Progress/Results/Core Measures Suspected Sepsis SIRS Temperature: Pulse: 119 Respiratory Rate: 16 Laboratory Tests 07/05/21 18:37: White Blood Count 4.1L Blood Pressure 124 /92 Mean: 103 Laboratory Tests 07/05/21 18:37: Creatinine 1.32H, Platelet Count 276, Total Bilirubin 0.4 Results/Orders Lab Results Laboratory Tests Test 07/05/21 18:37 07/05/21 18:43 Range/Units White Blood Count 4.1 L 4.3-11.0 10^3/uL Red Blood Count 4.03 3.80-5.11 10^6/uL Hemoglobin 12.2 11.5-16.0 g/dL Hematocrit 37 35-52 % Mean Corpuscular Volume 91 80-99 fL Mean Corpuscular Hemoglobin 30 25-34 pg Mean Corpuscular Hemoglobin Concent 33 32-36 g/dL Red Cell Distribution Width 13.5 10.0-14.5 % Platelet Count 276 130-400 10^3/uL Mean Platelet Volume 9.3 9.0-12.2 fL Immature Granulocyte % (Auto) 0 % Neutrophils (%) (Auto) 42 42-75 % Lymphocytes (%) (Auto) 37 12-44 % Monocytes (%) (Auto) 18 H 0-12 % Eosinophils (%) (Auto) 2 0-10 % Basophils (%) (Auto) 1 0-10 % Neutrophils # (Auto) 1.8 1.8-7.8 10^3/uL Lymphocytes # (Auto) 1.5 1.0-4.0 10^3/uL Monocytes # (Auto) 0.7 0.0-1.0 10^3/uL Eosinophils # (Auto) 0.1 0.0-0.3 10^3/uL Basophils # (Auto) 0.0 0.0-0.1 10^3/uL Immature Granulocyte # (Auto) 0.0 0.0-0.1 10^3/uL Sodium Level 131 L 135-145 MMOL/L Potassium Level 3.8 3.6-5.0 MMOL/L Chloride Level 98 98-107 MMOL/L Carbon Dioxide Level 23 21-32 MMOL/L Anion Gap 10 5-14 MMOL/L Blood Urea Nitrogen 6 L 7-18 MG/DL Creatinine 1.32 H 0.60-1.30 MG/DL Estimat Glomerular Filtration Rate 41 BUN/Creatinine Ratio 5 Glucose Level 88 70-105 MG/DL Calcium Level 8.6 8.5-10.1 MG/DL Corrected Calcium 8.6 8.5-10.1 MG/DL Total Bilirubin 0.4 0.1-1.0 MG/DL Aspartate Amino Transf (AST/SGOT) 35 H 5-34 U/L Alanine Aminotransferase (ALT/SGPT) 23 0-55 U/L Alkaline Phosphatase 103 40-136 U/L C-Reactive Protein High Sensitivity 3.08 H 0.00-0.50 MG/DL Total Protein 7.5 6.4-8.2 GM/DL Albumin 4.0 3.2-4.5 GM/DL Urine Color YELLOW Urine Clarity CLEAR Urine pH 6.5 5-9 Urine Specific [place] <=1.005 1.016-1.022 Urine Protein NEGATIVE NEGATIVE Urine Glucose (UA) NEGATIVE NEGATIVE Urine Ketones NEGATIVE NEGATIVE Urine Nitrite NEGATIVE NEGATIVE Urine Bilirubin NEGATIVE NEGATIVE Urine Urobilinogen 0.2 < = 1.0 MG/DL Urine Leukocyte Esterase 2+ H NEGATIVE Urine RBC (Auto) 2+ H NEGATIVE Urine RBC 0-2 /HPF Urine WBC 2-5 /HPF Urine Squamous Epithelial Cells 2-5 /HPF Urine Crystals NONE /LPF Urine Bacteria TRACE /HPF Urine Casts NONE /LPF Urine Mucus NEGATIVE /LPF Urine Culture Indicated YES My Orders Orders - ARVIND GARCIA Cbc With Automated Diff (07/05/21 18:33) Comprehensive Metabolic Panel (07/05/21 18:33) Hs C Reactive Protein (07/05/21 18:33) Ua Culture If Indicated (07/05/21 18:33) Ed Iv/Invasive Line Start (07/05/21 18:33) Ns Iv 1000 Ml (Sodium Chloride 0.9%) (07/05/21 18:45) Urine Culture (07/05/21 18:43) Vital Signs/I&O 07/05/21 18:00 Temp 36.3 Pulse 119 Resp 16 B/P (MAP) 124/92 (103) Pulse Ox 96 O2 Delivery Room Air Capillary Refill : Less Than 3 Seconds Blood Pressure Mean: 103 Progress Note #1: Time: 18:38 Progress Note Aseptic vital signs with an occasional dry nonproductive cough. She appears to have a cold. We will recheck labs today as well as a urine. If we cannot find any bad actors in her medications, labs or history then the next step would be to have her follow-up with her overage shortage and damage clerk to perform outpatient studies to pursue her hyponatremia. Neurologically she is intact so I suspect this is not an acute but may be more of a subacute hyponatremia. Her sodium was 130 back in April. Progress Note #2: Time: 19:11 Progress Note The patient sodium is at her chronic baseline compared to previous labs. She is asymptomatic still. She got about half of the liter of fluids and would like to complete her fluids. We will let her follow-up next week with her PCP to repeat a sodium level and if it is still at her baseline then we suspect that the previous test was spurious. Patient is okay with this plan. She will depart soon as her fluids are done Departure Impression Primary Impression: Chronic hyponatremia Disposition: HOME, SELF-CARE Condition: Stable Departure-Patient Inst. Decision time for Depature: 19:12 Referrals: GREG KIM DO (PCP/Family) Primary Care Physician Patient Instructions: Hyponatremia (DC) Add. Discharge Instructions: While your sodium is a little out of range it is at your baseline so this is normal for you. I suspect your previous test might have been spurious. You can repeat a lab test in a week or 2 with your primary care doctor and if it still at this level then I would disregard the previous finding of sodium at 119. All discharge instructions reviewed with patient and/or family. Voiced understanding. Copy Copies To 1: GREG KIM TITUS J Jul 05, 2021 18:40
[2021-07-05 18:42] LABS: BASOPHILS % (AUTO) 1 % (0-10); EOSINOPHILS # (AUTO) 0.1 10^3/uL (0.0-0.3); EOSINOPHILS % (AUTO) 2 % (0-10); HEMATOCRIT 37 % (35-52); HEMOGLOBIN 12.2 g/dL (11.5-16.0); LYMPHOCYTES # (AUTO) 1.5 10^3/uL (1.0-4.0); LYMPHOCYTES % (AUTO) 37 % (12-44); MEAN CORPUSCULAR HEMOGLOBIN 30 pg (25-34); MEAN CORPUSCULAR HGB CONC 33 g/dL (32-36); MEAN CORPUSCULAR VOLUME 91 fL (80-99); MEAN PLATELET VOLUME 9.3 fL (9.0-12.2); MONOCYTES # (AUTO) 0.7 10^3/uL (0.0-1.0); MONOCYTES % (AUTO) 18 % (0-12); NEUTROPHILS # (AUTO) 1.8 10^3/uL (1.8-7.8); NEUTROPHILS % (AUTO) 42 % (42-75); PLATELET COUNT 276 10^3/uL (130-400); POTASSIUM 3.8 MMOL/L (3.6-5.0); WHITE BLOOD COUNT 4.1 10^3/uL (4.3-11.0)
[2021-07-05 18:43] LABS: CALCIUM 8.6 MG/DL (8.5-10.1)
[2021-07-05 18:45] LABS: TOTAL PROTEIN 7.5 GM/DL (6.4-8.2)
[2021-07-05] MEDS ORDERED: NS IV 1000 ML 1,000 ML IV SCH (18:45)
[2021-07-05 18:46] LABS: BILIRUBIN,URINE NEGATIVE (NEGATIVE); CLARITY,URINE CLEAR; COLOR,URINE YELLOW; GLUCOSE, URINE (UA) NEGATIVE (NEGATIVE); KETONES,URINE NEGATIVE (NEGATIVE); LEUKOCYTE ESTERASE ,URINE 2+ (NEGATIVE); NITRITE,URINE NEGATIVE (NEGATIVE); PH,URINE 6.5 (5-9); PROTEIN,URINE NEGATIVE (NEGATIVE)
[2021-07-05 18:47] LABS: BILIRUBIN,TOTAL 0.4 MG/DL (0.1-1.0)
[2021-07-05 18:48] LABS: CREATININE SERUM 1.32 MG/DL (0.60-1.30)
[2021-07-05 18:57] LABS: RBC,URINE 0-2 /HPF
[2021-07-05 18:58] LABS: BACTERIA,URINE TRACE /HPF
[2021-07-05 19:40] VITALS: BP 122/90
== END 2021-07-05 19:46 | disposition home or self-care (01) ==
LOC: EDUNIT# 17:50 → ER 17:52
DX: E87.1 Hypo-osmolality and hyponatremia (principal); G47.30 Sleep apnea, unspecified; K21.9 Gastro-esophageal reflux disease without esophagitis; F41.9 Anxiety disorder, unspecified; F32.9 Major depressive disorder, single episode, unspecified; Z79.899 Other long term (current) drug therapy
CPT/HCPCS: 36415; 80053; 81000; 85025; 86141; 87088

== ENCOUNTER → 2021-10-02 | Outpatient (CLI) | payer BC, MEDICARE ==
--- NOTE | 2021-10-02 13:46 | Diagnostic Imaging Report ---
PROCEDURE: US Renal Bilateral. TECHNIQUE: Multiple real-time grayscale images were obtained over the kidneys in various projections bilaterally. INDICATION: Chronic kidney disease. COMPARISON: 06/18/2016. FINDINGS: The right kidney measures 9.1 cm in length. There is no hydronephrosis or mass seen. Cortical echogenicity appears normal and no shadowing calculi are seen. The left kidney measures 8.7 cm in length. There is no hydronephrosis or masses seen. No shadowing calculi are seen. The cortical echogenicity appears normal. No free fluid is seen. The urinary bladder is mildly distended. No filling defects or significant debris is seen. Bilateral ureteral jets are seen. IMPRESSION: 1. Normal renal ultrasound. Dictated by: Dictated on workstation # [id number]
== END ==
LOC: RAD 12:00
PROVIDERS: ATTEND Internal Medicine Nephrology
DX: N18.32 Chronic kidney disease, stage 3b (principal); E87.1 Hypo-osmolality and hyponatremia
CPT/HCPCS: 76770

== ENCOUNTER 2022-01-29 18:52 | Emergency (ER) | payer MEDICARE ==
[~2022-01-29] VITALS: Ht 170 cm; Wt 72.6 kg
--- NOTE | 2022-01-29 19:13 | ED General ---
General Stated Complaint: BODYACHE - SORE THROAT- CONGESTION - HEADACHE Source of Information: Patient Exam Limitations: No Limitations History of Present Illness Date Seen by Provider: Jan 29, 2022 Time Seen by Provider: 19:11 Initial Comments Patient is a 56-year-old female presents ED with body aches chills fatigue since yesterday. She also reports secondary nasal congestion, sinus pressure and a wet cough. She had developed chest tightness today with shortness of breath. She reports dry cough. Symptoms started yesterday. She tested positive for COVID at home. Sister was diagnosed with COVID. She has a history of Lyme disease, CKD. Denies history of asthma, COPD, CHF or coronary artery disease. She reports a low-grade temperature. She denies of any wheezing, leg swelling,abdominal pain, vomiting or diarrhea. Denies any urinary symptoms. She states she feels dehydrated requesting IV fluids. Allergies and Home Medications Allergies Coded Allergies: Penicillins (Verified Allergy, Unknown, Pt has received Rocephin in the past w/o issue, 08/31/19) butorphanol (Verified Allergy, Unknown, 11/28/20) ketorolac (Verified Allergy, Unknown, 11/28/20) Patient Home Medication List Home Medication List Reviewed: Yes Alprazolam (Alprazolam) 0.5 Mg Tablet, 0.5 MG PO EVERY 4-6 HOURS PRN for ANXIETY, (Reported) Entered as Reported by: HARVEY RUBIO on 05/08/16 1456 Azithromycin (Azithromycin) 250 Mg Tablet, 500 MG PO DAILY Prescribed by: JACQUELINE COMER on 11/28/20 1311 Cefuroxime Axetil (Cefuroxime) 500 Mg Tablet, 500 MG PO BID Prescribed by: JACQUELINE COMER on 04/15/211956 Famotidine (Famotidine) 20 Mg Tablet, 20 MG PO DAILY PRN for HEARTBURN, (Reported) Entered as Reported by: TOÑITO COREA on 04/12/20 0916 Fexofenadine HCl (Kaitlynn Allergy) 180 Mg Tablet, 180 MG PO DAILY, (Reported) Entered as Reported by: TOÑITO COREA on 04/12/20 0916 Ondansetron (Ondansetron Odt) 8 Mg Tab.rapdis, 8 MG PO Q8H PRN for NAUSEA/VOMITING, (Reported) Entered as Reported by: HARVEY RUBIO on 05/08/16 1456 Prednisone (Prednisone) 20 Mg Tab, 40 MG PO DAILY Prescribed by: JACQUELINE COMER on 11/28/20 1311 Promethazine HCl (Promethazine Tablet) 25 Mg Tablet, 0.5 TAB PO BID PRN for NAUSEA/VOMITING Prescribed by: JACQUELINE COMER on 04/15/211956 Review of Systems Review of Systems Constitutional: chills; No diaphoresis; malaise EENTM: throat pain; No mouth pain Respiratory: cough, short of breath Cardiovascular: chest pain Gastrointestinal: No abdominal pain, No diarrhea Genitourinary: No decreased output Musculoskeletal: No back pain, No joint pain All Other Systems Reviewed Negative Unless Noted: Yes Past Abohexx-Jbznng-Sbrqrl Hx Immunizations Up To Date Tetanus Booster (TDap): Unknown PED Vaccines UTD: No First/Initial COVID19 Vaccinat: NONE Second COVID19 Vaccination Fabio: NONE Seasonal Allergies Seasonal Allergies: Yes Past Medical History Surgeries: Yes (L LUMPECTOMY, L arm fx then hardware removed) Abdominal, Breast, Hysterectomy, Tubal Ligation Respiratory: Yes (low oxygen at hs doesn't use oxygen) Sleep Apnea Currently Using CPAP: No Currently Using BIPAP: No Cardiac: No Angina Neurological: Yes (LYME DZ,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 WITH ALLERGIC RX TO MEDS/ENVIRONMENTAL ALLERGY) Headaches /Migraines, Neuropathy, Seizure Disorder 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 Disorders: No Female 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 Disorders: 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 Sexually Transmitted Disease: No HIV/AIDS: No Genitourinary: Yes UTI-Chronic Gastrointestinal: Yes Gastroesophageal Reflux, Chronic Constipation, Ulcer, Gall Bladder Disease, Irritable Bowel Musculoskeletal: Yes Arthritis, Fibromyalgia, Chronic Back Pain Endocrine: No HEENT: No Loss of Vision: Denies Cancer: No Psychosocial: Yes Anxiety, Depression Integumentary: No Blood Disorders: Yes (chronic Lyme's disease) Family Medical History Alcoholism G8 BROTHER G8 SISTER Arthritis 19 MOTHER FH: Parkinson's disease 19 FATHER FH: breast cancer 19 FATHER FH: leukemia G8 BROTHER G8 SISTER Headache disorder G8 SISTER G8 SISTER [place] Myocardial infarction 19 MOTHER PARKINSON 19 FATHER Parkinson's disease 19 FATHER TIA 19 FATHER TIAs No Family History of: AIDS Abdominal aortic aneurysm Costilla's disease Alzheimer's disease Asthma Cardiovascular disease Completed stroke Coronary thrombosis Diabetes mellitus Drug abuse Hypertension Kidney disease Respiratory disorder Seizure disorder Severe allergy Thyroid disease Tuberculosis No Pertinent Family Hx Physical Exam Vital Signs Vital Signs - First Documented 01/29/22 01/29/22 18:56 19:27 Temp 36.8 Pulse 96 Resp 18 B/P (MAP) 149/87 (107) Pulse Ox 98 O2 Delivery Room Air Capillary Refill : Height, Weight, BMI Height: 5'7.00" Weight: 145lbs. 3.0oz. [id number]; 24.00 BMI Method:Stated General Appearance: No Apparent Distress, WD/WN Eyes: Bilateral Eye Normal Inspection, Bilateral Eye PERRL, Bilateral Eye Abnormal EOM HEENT: PERRL/EOMI, TMs Normal, Normal ENT Inspection, Pharynx Normal Neck: Full Range of Motion, Normal Inspection, Non Tender, Supple Respiratory: Chest Non Tender, Lungs Clear, Normal Breath Sounds, No Accessory Muscle Use, No Respiratory Distress Cardiovascular: No Gallop, No JVD, No Murmur, Tachycardia Gastrointestinal: Normal Bowel Sounds, No Organomegaly, No Pulsatile Mass, Soft, Tenderness (Generalized tenderness) Extremity: Normal Capillary Refill, Normal Inspection, Non Tender, No Calf Tenderness Neurologic/Psychiatric: Alert, Oriented x3, No Motor/Sensory Deficits, Normal 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, 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 as Tested Skin: Normal Color, Warm/Dry Progress/Results/Core Measures Suspected Sepsis SIRS Temperature: Pulse: Respiratory Rate: Laboratory Tests 01/29/22 19:10: White Blood Count 7.9 Blood Pressure / Mean: Laboratory Tests 01/29/22 19:10: Creatinine 1.37H, Platelet Count 334, Total Bilirubin 0.5 Results/Orders Lab Results Laboratory Tests Test 01/29/22 19:10 01/29/22 20:12 Range/Units White Blood Count 7.9 4.3-11.0 10^3/uL Red Blood Count 4.20 3.80-5.11 10^6/uL Hemoglobin 12.7 11.5-16.0 g/dL Hematocrit 38 35-52 % Mean Corpuscular Volume 91 80-99 fL Mean Corpuscular Hemoglobin 30 25-34 pg Mean Corpuscular Hemoglobin Concent 33 32-36 g/dL Red Cell Distribution Width 13.2 10.0-14.5 % Platelet Count 334 130-400 10^3/uL Mean Platelet Volume 8.8 L 9.0-12.2 fL Immature Granulocyte % (Auto) 0 % Neutrophils (%) (Auto) 76 H 42-75 % Lymphocytes (%) (Auto) 14 12-44 % Monocytes (%) (Auto) 7 0-12 % Eosinophils (%) (Auto) 2 0-10 % Basophils (%) (Auto) 1 0-10 % Neutrophils # (Auto) 6.0 1.8-7.8 10^3/uL Lymphocytes # (Auto) 1.1 1.0-4.0 10^3/uL Monocytes # (Auto) 0.6 0.0-1.0 10^3/uL Eosinophils # (Auto) 0.1 0.0-0.3 10^3/uL Basophils # (Auto) 0.1 0.0-0.1 10^3/uL Immature Granulocyte # (Auto) 0.0 0.0-0.1 10^3/uL Sodium Level 133 L 135-145 MMOL/L Potassium Level 3.4 L 3.6-5.0 MMOL/L Chloride Level 97 L 98-107 MMOL/L Carbon Dioxide Level 23 21-32 MMOL/L Anion Gap 13 5-14 MMOL/L Blood Urea Nitrogen 5 L 7-18 MG/DL Creatinine 1.37 H 0.60-1.30 MG/DL Estimat Glomerular Filtration Rate 45 BUN/Creatinine Ratio 4 Glucose Level 140 H 70-105 MG/DL Calcium Level 8.9 8.5-10.1 MG/DL Corrected Calcium 8.9 8.5-10.1 MG/DL Magnesium Level 1.9 1.6-2.4 MG/DL Total Bilirubin 0.5 0.1-1.0 MG/DL Aspartate Amino Transf (AST/SGOT) 22 5-34 U/L Alanine Aminotransferase (ALT/SGPT) 16 0-55 U/L Alkaline Phosphatase 117 40-136 U/L Troponin I < 0.028 <0.028 NG/ML B-Type Natriuretic Peptide 17.1 <100.0 PG/ML Total Protein 7.5 6.4-8.2 GM/DL Albumin 4.0 3.2-4.5 GM/DL Urine Color YELLOW Urine Clarity CLEAR Urine pH 6.0 5-9 Urine Specific [place] <=1.005 1.016-1.022 Urine Protein NEGATIVE NEGATIVE Urine Glucose (UA) NEGATIVE NEGATIVE Urine Ketones NEGATIVE NEGATIVE Urine Nitrite NEGATIVE NEGATIVE Urine Bilirubin NEGATIVE NEGATIVE Urine Urobilinogen 0.2 < = 1.0 MG/DL Urine Leukocyte Esterase 1+ H NEGATIVE Urine RBC (Auto) 2+ H NEGATIVE Urine RBC 0-2 /HPF Urine WBC 0-2 /HPF Urine Squamous Epithelial Cells NONE /HPF Urine Renal Epithelial Cells NONE /HPF Urine Crystals NONE /LPF Urine Bacteria NEGATIVE /HPF Urine Casts NONE /LPF Urine Mucus NEGATIVE /LPF Urine Culture Indicated NO My Orders Orders - HAY PURVIS PA Cbc With Automated Diff (01/29/22 19:09) Comprehensive Metabolic Panel (01/29/22 19:09) Magnesium (01/29/22 19:09) Troponin I [place] (01/29/22 19:09) Bnp [place] (01/29/22 19:09) Chest 1 View, Ap/Pa Only (01/29/22 19:09) Dexamethasone Injection (Decadron Inje (01/29/22 19:09) Iv/Invasive Line Insertion .IV start (01/29/22 19:10) Bebtelovimab (Bebtelovimab) (01/29/22 20:00) Nursing Communication (Order) (01/29/22 19:56) Ns Iv 1000 Ml (Sodium Chloride 0.9%) (01/29/22 20:00) Ua Culture If Indicated (01/29/22 20:01) Meclizine Tablet (Antivert Tablet) (01/29/22 21:15) Medications Given in ED Vital Signs/I&O 01/29/22 01/29/22 01/29/22 18:56 19:27 21:50 Temp 36.8 36.8 Pulse 96 104 Resp 18 18 B/P (MAP) 149/87 (107) 136/61 Pulse Ox 98 98 O2 Delivery Room Air Room Air Room Air Capillary Refill : Departure Communication (PCP) Patient presents ED with flulike symptoms since yesterday. Positive COVID test at home. Sister was diagnosed with COVID. Patient was slightly tachycardic. Flulike symptoms. Reports some chest tightness today. No wheezing or signs of respiratory distress. Chest x-ray negative for pneumonia. EKG showed sinus tachycardia. No evidence of ST elevation or depression. Cardiac work-up unremarkable. Denies history of CHF, coronary artery disease. Patient lab work with hyponatremia, hypochloremia. Potassium 3.4 chronic stable kidney disease. Due to her chronic kidney disease with contradictions with paxlovid to severe kidney disease patient was given dose of monoclonal antibody here. She did meet the criteria for monoclonal antibody. Discussed risks and possible side effects. She consent with the infusion. She was given infusion without any difficulties. Patient refused Decadron. Patient was given a liter of fluid per her request. She does not appear in acute distress. Symptoms improved. Recommend outpatient follow-up with PCP in 2 to 3 days for evaluation. Chest tightness likely secondary to her cough and COVID. Discussed pulse ox to monitor oxygen level at home. She is recommended follow-up with her PCP in 2 to 3 days for reevaluation. If any worsening symptoms return back to ED. Impression Primary Impression: COVID-19 Disposition: 01 HOME, SELF-CARE Condition: Stable Departure-Patient Inst. Decision time for Depature: 20:08 Referrals: GREG PATRICIA DO (PCP/Family) Primary Care Physician Patient Instructions: COVID-19 (DC) HAY PURVIS Jan 29, 2022 19:13
[2022-01-29 19:21] LABS: BASOPHILS # (AUTO) 0.1 10^3/uL (0.0-0.1); BASOPHILS % (AUTO) 1 % (0-10); EOSINOPHILS # (AUTO) 0.1 10^3/uL (0.0-0.3); EOSINOPHILS % (AUTO) 2 % (0-10); HEMATOCRIT 38 % (35-52); HEMOGLOBIN 12.7 g/dL (11.5-16.0); LYMPHOCYTES # (AUTO) 1.1 10^3/uL (1.0-4.0); LYMPHOCYTES % (AUTO) 14 % (12-44); MEAN CORPUSCULAR HEMOGLOBIN 30 pg (25-34); MEAN CORPUSCULAR HGB CONC 33 g/dL (32-36); MEAN CORPUSCULAR VOLUME 91 fL (80-99); MEAN PLATELET VOLUME 8.8 fL (9.0-12.2); MONOCYTES # (AUTO) 0.6 10^3/uL (0.0-1.0); MONOCYTES % (AUTO) 7 % (0-12); NEUTROPHILS % (AUTO) 76 % (42-75); PLATELET COUNT 334 10^3/uL (130-400); WHITE BLOOD COUNT 7.9 10^3/uL (4.3-11.0)
[2022-01-29 19:44] LABS: ALANINE AMINOTRANSFERASE 16 U/L (0-55); ALKALINE PHOSPHATASE 117 U/L (40-136); BILIRUBIN,TOTAL 0.5 MG/DL (0.1-1.0); BUN/CREATININE RATIO 4; CALCIUM 8.9 MG/DL (8.5-10.1); CARBON DIOXIDE 23 MMOL/L (21-32); CHLORIDE 97 MMOL/L (98-107); CREATININE SERUM 1.37 MG/DL (0.60-1.30); GFR ESTIMATED 45; GLUCOSE 140 MG/DL (70-105); MAGNESIUM 1.9 MG/DL (1.6-2.4); POTASSIUM 3.4 MMOL/L (3.6-5.0); SODIUM 133 MMOL/L (135-145); TOTAL PROTEIN 7.5 GM/DL (6.4-8.2)
--- NOTE | 2022-01-29 19:50 | Diagnostic Imaging Report ---
INDICATION: Shortness of breath. Time of Exam: 7:32 PM Correlation is made with prior chest 04/15/2021. FINDINGS: The heart size is normal. The pulmonary vascularity is unremarkable. The lungs are clear. No infiltrate, effusion or pneumothorax is detected. IMPRESSION: No acute cardiopulmonary process is detected. Dictated by: Dictated on workstation # [id number]
[2022-01-29] MEDS ORDERED: BEBTELOVIMAB 175 MG/2 ML VIAL IV ONE (20:00)
[2022-01-29] MEDS ORDERED: NS IV 1000 ML 1,000 ML IV STA (20:00)
[2022-01-29 20:17] LABS: BILIRUBIN,URINE NEGATIVE (NEGATIVE); CLARITY,URINE CLEAR; COLOR,URINE YELLOW; GLUCOSE, URINE (UA) NEGATIVE (NEGATIVE); KETONES,URINE NEGATIVE (NEGATIVE); LEUKOCYTE ESTERASE ,URINE 1+ (NEGATIVE); NITRITE,URINE NEGATIVE (NEGATIVE); PROTEIN,URINE NEGATIVE (NEGATIVE)
[2022-01-29 20:23] LABS: BACTERIA,URINE NEGATIVE /HPF; RBC,URINE 0-2 /HPF; WBC,URINE 0-2 /HPF
[2022-01-29] MEDS ORDERED: MECLIZINE 25 MG (ANTIVERT) TAB PO ONE (21:15)
[2022-01-29 21:50] VITALS: BP 136/61
== END 2022-01-29 21:50 | disposition home or self-care (01) ==
LOC: EDUNIT# 18:52 → ER 18:54
DX: U07.1 COVID-19 (principal); Z73.0 Burn-out; Z28.310 Unvaccinated for COVID-19
CPT/HCPCS: 36415; 71045; 80053; 81000; 83735; 83880; 84484; 85025; 93005

== ENCOUNTER → 2022-05-15 | Outpatient (CLI) | payer MEDICARE, OTHER ==
--- NOTE | 2022-05-15 17:47 | Diagnostic Imaging Report ---
INDICATION: Neck pain and cervicalgia AP, oblique and odontoid views of the cervical spine are obtained. Lateral images of the cervical spine are obtained in neutral, flexed and extended positions. COMPARISON is made with study of 08/02/2015. There is diffuse sclerosis and degenerative change about the facet joints throughout the cervical spine. Endplate spurring and uncovertebral hypertrophy result in mild bony encroachment upon the C5-C6 neural foramina bilaterally as well as right C6-C7 neural foramen. C5-C6 and C6-C7 disc space narrowing has progressed with associated endplate spurring. Prevertebral soft tissues are unremarkable. Note is made of no significant abnormal motion with flexion and extension. IMPRESSION: Interval worsening of C5-C6 and C6-C7 degenerative disc disease with mild associated neural foraminal stenoses at C5-C6 and C6-C7. No acute cervical spinal abnormality or ligamentous instability is seen. Dictated by: Dictated on workstation # [id number]
== END ==
LOC: RAD 15:48
PROVIDERS: ATTEND Internal Medicine Rheumatology
DX: M50.323 Other cervical disc degeneration at C6-C7 level (principal); M48.02 Spinal stenosis, cervical region
CPT/HCPCS: 72052

== ENCOUNTER → 2022-07-01 | Outpatient (CLI) | payer MEDICARE, OTHER | LOC: CARD 12:20 | PROVIDERS: ATTEND Nurse Practitioner Family | DX: R00.2 Palpitations (principal) | CPT/HCPCS: 93246 ==

== ENCOUNTER → 2023-05-23 | Outpatient (CLI) | payer MEDICARE, OTHER ==
--- NOTE | 2023-05-23 12:45 | Diagnostic Imaging Report ---
INDICATION: Routine screening. COMPARISON is made with prior mammogram 10/17/2020. 2-D and 3-D bilateral screening mammography was performed with CAD. Both breasts are heterogeneously dense, limiting the sensitivity of mammography. No mass or malignant-appearing microcalcifications are seen. Axillae are unremarkable. IMPRESSION: BI-RADS Category 1 No mammographic features suspicious for malignancy are identified. ACR BI-RADS Category 1: Negative. Result letter will be mailed to the patient. Note: At least 10% of breast cancer is not imaged by mammography. Dictated by: Dictated on workstation # [id number]
== END ==
LOC: RAD 10:40
PROVIDERS: ATTEND Internal Medicine
DX: Z12.31 Encounter for screening mammogram for malignant neoplasm of breast (principal)
CPT/HCPCS: 77063; 77067